=== PATIENT | male | born 1980 | race Caucasian/White ===

== ENCOUNTER 2016-05-07 22:05 | Emergency (ER) | payer MEDICAID ==
[~2016-05-07] VITALS: Ht 182.9 cm; Wt 101.2 kg
[~2016-05-07 22:05] MED LIST: CLON0.5T PO; CLON1TAB PO; CLON1TAB3 PO; DEXT30TA2 PO; DEXT5TAB27 PO; GABA-585 PO; GABA-586 PO; GABA600T2 PO; HYDR-971 PO; HYDR2TAB13 PO; INSU100I17 SQ; INSU100V13 SQ; INSU100V31 SQ; INSU100V8 SQ; LEVO750T31 PO; LORA-434 PO; MELA1TAB11 PO; METF10002 PO; METO10TA81 PO; METO5TAB PO; METO5TAB55 PO; METR500T PO; NAPR500T PO; ONDA4TAB7 PO; OXYC-323 PO; Oxycodone Hcl/Acetaminophen PO
[2016-05-07 22:45] LABS: BASO % 1 % (0-3); EOS % 3 % (0-3); HEMATOCRIT 35.2 % (39.0-53.0); HEMOGLOBIN 11.5 g/dL (13.0-17.5); LYMPH # 1.7 x10^3/uL (1.0-4.8); LYMPH % 35 % (24-48); MEAN CORPUSCULAR HEMOGLOBIN 27 pg (25-35); MEAN CORPUSCULAR HGB CONC 33 g/dL (31-37); MEAN CORPUSCULAR VOLUME 83 fL (79-100); MONO % 7 % (0-9); NEUT % 55 % (31-73); PLATELET COUNT 282 x10^3/uL (140-400); RED BLOOD COUNT 4.21 x10^6/uL (4.30-5.70); RED CELL DISTRIBUTION WIDTH 16.3 % (11.5-14.5); WHITE BLOOD COUNT 4.7 x10^3/uL (4.0-11.0)
[2016-05-07] MEDS ORDERED: IV NORMAL SALINE 1000ML BAG 1,000 ML IV ONE (22:45)
[2016-05-07] MEDS ORDERED: MORPHINE SULFATE 4 MG/ML DISP.SYRIN. IV ONE (22:45)
--- NOTE | 2016-05-07 22:56 | RAD ---
PROCEDURE Three-view right shoulder radiographs 05/07/2016 HISTORY Severe right shoulder pain. History of recent right shoulder fracture. FINDINGS AP internal and external rotation and transscapular digital radiographs the right shoulder were obtained. Comparison study is dated 04/04/2016. A comminuted fracture is again seen involving the right humeral neck which extends to involve the greater tuberosity. The alignment of the fracture fragments have not significantly changed. Since the previous examination there has been evidence of callus formation consistent with interval healing. No acute fracture is seen. IMPRESSION Healing fracture of the proximal right humerus as outlined above. No acute fracture is seen. Electronically signed by: Edy Silverman MD (May 07, 2016 22:54:57)
[2016-05-07 23:03] LABS: CALCIUM 8.9 mg/dL (8.5-10.1); CREATININE 1.1 mg/dL (0.7-1.3); GFR 76.2
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
[2016-05-08] MEDS ORDERED: HYDR-971 PO (00:01)
[2016-05-08 00:15] VITALS: BP 111/63
== END 2016-05-08 00:30 | disposition home or self-care (01) ==
LOC: ER 22:05
DX: S42.91XA Fracture of right shoulder girdle, part unspecified, initial encounter for closed fracture (principal); E11.65 Type 2 diabetes mellitus with hyperglycemia; K50.90 Crohn's disease, unspecified, without complications; Z88.8 Allergy status to other drugs, medicaments and biological substances; Z88.5 Allergy status to narcotic agent; V49.9XXA Car occupant (driver) (passenger) injured in unspecified traffic accident, initial encounter; Y93.89 Activity, other specified; Y92.89 Other specified places as the place of occurrence of the external cause; Y99.8 Other external cause status
CPT/HCPCS: 36415; 73030; 80048; 82947; 85027; 96361; 96374; 99285; J2270; J7030

== ENCOUNTER 2016-06-12 19:47 | Inpatient (IN) | payer MEDICAID ==
[~2016-06-12] VITALS: Ht 185.4 cm; Wt 103.9 kg
[2016-06-12] MEDS ORDERED: IV NORMAL SALINE 1000ML BAG 1,000 ML IV SCH (20:12)
--- NOTE | 2016-06-12 20:12 | PHYS DOC ---
Past Medical History Past Medical History: Diabetes-Type II, Diverticulosis, Pancreatitis Additional Past Medical Histor: BI-POLAR, CHRONES DISEASE, ADHD Past Surgical History: No Surgical History Additional Past Surgical Histo: Colonoscopy, EGD Additional Information: CHEWS TOBACCO Alcohol Use: Occasionally Drug Use: Marijuana, Methamphetamine Adult General Chief Complaint Chief Complaint: HYPERGLYCEMIA HPI HPI Patient is a 35 year old female who presents with right flank and abdominal pain, nausea and vomiting, hyperglycemia. Patient reports for the past day and a half he has been having sharp pain in his right flank and right lower quadrant. This is accompanied by nausea and vomiting. He also reports his blood sugars been running in the 400s and he has been having polyuria. He has been taking his insulin as he is supposed to. No clear inciting or mitigating factors. No other acute complaints. Review of Systems Review of Systems Constitutional: Denies fever or chills Eyes: Denies change in visual acuity or eye pain HENT: Denies nasal congestion or sore throat Respiratory: Denies cough or shortness of breath Cardiovascular: Denies chest pain GI: RLQ abdominal pain, nausea, vomiting. Denies bloody stools or diarrhea : Polyuria. Denies dysuria or hematuria Musculoskeletal: R flank pain. Denies back pain or joint pain Integument: Denies rash or skin lesions Neurologic: Denies headache, focal weakness or sensory changes Current Medications Current Medications Current Medications Medications (Trade) Dose Ordered Sig/Trev Start Time Stop Time Status Last Admin Dose Admin Info (Do NOT chart on this entry -- for MONITORING) 1 each PRN DAILY PRN 06/12/16 20:45 06/14/16 20:44 Iohexol (Omnipaque 300 Mg/ml) 75 ml 1X ONCE 06/12/16 20:30 06/12/16 20:31 DC 06/12/16 21:21 75 ML Morphine Sulfate 4 mg 4 mg 1X ONCE 06/12/16 21:45 06/12/16 21:46 DC 06/12/16 21:59 4 MG Promethazine HCl/ Sodium Chloride (Phenergan/Iv Sodium Chloride 0.9% 50ml) 50.5 ml @ 151.5 mls/ hr 1X ONCE 06/12/16 20:15 06/12/16 20:34 DC 06/12/16 20:33 151.5 MLS/HR Sodium Chloride (Iv Sodium Chloride 0.9% 1000ml Bag) 1,000 ml @ 75 mls/hr [id number] 06/12/16 22:42 06/13/16 22:41 Allergies Allergies Allergies Coded Allergies Type Severity Reaction Last Updated Verified fentanyl Allergy Severe Throat Swells--Anaphylaxis 10/20/13 Yes haloperidol Allergy Severe "In ICU, almost .Toxicity." 10/20/13 Yes lithium Allergy Severe "In ICU-almost . Toxicity" 10/20/13 Yes ketorolac Allergy Intermediate Hives 10/20/13 Yes Physical Exam Physical Exam Constitutional: Well developed, well nourished, no acute distress, non-toxic appearance HENT: Normocephalic, atraumatic, bilateral external ears normal Eyes: EOMI, conjunctiva normal, no discharge Neck: Normal range of motion, no stridor Cardiovascular: Tachycardic, regular rhythm, no murmur Lungs & Thorax: Bilateral breath sounds clear to auscultation Abdomen: Bowel sounds normal, soft, non-distended, RLQ TTP without guarding or rebound Skin: Warm, dry, no erythema, no rash Back: R CVA tenderness Extremities: No obvious deformity, no edema Neurologic: Alert and oriented X 3, no gross deficits noted Psychologic: Affect normal, judgement normal, mood normal Current Patient Data Vital Signs Vital Signs Date Time Temp Pulse Resp B/P Pulse Ox O2 Delivery O2 Flow Rate FiO2 06/12/16 19:50 97.6 89 16 130/73 99 Room Air 97.6 Lab Values Laboratory Tests Test 06/12/16 19:57 06/12/16 20:40 Glucose (Fingerstick) 368mg/dL (70-99) H White Blood Count 7.3x10^3/uL (4.0-11.0) Red Blood Count 4.25x10^6/uL (4.30-5.70) L Hemoglobin 11.3g/dL (13.0-17.5) L Hematocrit 34.6% (39.0-53.0) L Mean Corpuscular Volume 81fL (79-100) Mean Corpuscular Hemoglobin 27pg (25-35) Mean Corpuscular Hemoglobin Concent 33g/dL (31-37) Red Cell Distribution Width 16.0% (11.5-14.5) H Platelet Count 264x10^3/uL (140-400) Neutrophils (%) (Auto) 72% (31-73) Lymphocytes (%) (Auto) 20% (24-48) L Monocytes (%) (Auto) 7% (0-9) Eosinophils (%) (Auto) 1% (0-3) Basophils (%) (Auto) 0% (0-3) Neutrophils # (Auto) 5.2x10^3uL (1.8-7.7) Lymphocytes # (Auto) 1.5x10^3/uL (1.0-4.8) Monocytes # (Auto) 0.5x10^3/uL (0.0-1.1) Eosinophils # (Auto) 0.1x10^3/uL (0.0-0.7) Basophils # (Auto) 0.0x10^3/uL (0.0-0.2) Urine Color Yellow Urine Clarity Cloudy Urine pH 6.5 Urine Specific [place] >=1.030 Urine Protein Negativemg/dL (NEG-TRACE) Urine Glucose (UA) >=1000mg/dL (NEG) Urine Ketones (Stick) Negativemg/dL (NEG) Urine Blood Negative (NEG) Urine Nitrite Negative (NEG) Urine Bilirubin Negative (NEG) Urine Urobilinogen Dipstick 0.2mg/dL (0.2 mg/dL) Urine Leukocyte Esterase Negative (NEG) Urine RBC 0/HPF (0-2) Urine WBC 0/HPF (0-4) Urine Squamous Epithelial Cells Occ/LPF Urine Bacteria 0/HPF (0-FEW) Sodium Level 140mmol/L (136-145) Potassium Level 4.0mmol/L (3.5-5.1) Chloride Level 101mmol/L (98-107) Carbon Dioxide Level 26mmol/L (21-32) Anion Gap 13 (6-14) Blood Urea Nitrogen 12mg/dL (8-26) Creatinine 0.8mg/dL (0.7-1.3) Estimated GFR (Cockcroft-Gault) 110.0 BUN/Creatinine Ratio 15 (6-20) Glucose Level 356mg/dL (70-99) H Calcium Level 9.0mg/dL (8.5-10.1) Total Bilirubin 0.2mg/dL (0.2-1.0) Aspartate Amino Transferase (AST) 14U/L (15-37) L Alanine Aminotransferase (ALT) 24U/L (16-63) Alkaline Phosphatase 137U/L (46-116) H Total Protein 7.3g/dL (6.4-8.2) Albumin 3.5g/dL (3.4-5.0) Albumin/Globulin Ratio 0.9 (1.0-1.7) L Lipase 123U/L (73-393) Laboratory Tests 06/12/16 20:40 Laboratory Tests 06/12/16 20:40 EKG EKG [] Radiology/Procedures Radiology/Procedures CT A/P: IMPRESSION No acute abnormality is seen. Course & Med Decision Making Course & Med Decision Making Pertinent Labs and Imaging studies reviewed. (See chart for details) Patient is 35-year-old male who presents with right flank and right lower quadrant pain, nausea and vomiting, hyperglycemia. We'll check CT abdomen/ pelvis to evaluate for possible causes such as kidney stone or appendicitis. Also check labs, UA. IV fluids, pain medication, nausea medication ordered for relief of symptoms. Blood work notable only for hyperglycemia. Imaging results as above. Discussed results with patient, who remains markedly tachycardic (in the 130s) even after fluids. Discussed with Dr. Rees, will admit under his care for further evaluation and treatment. Dragon Disclaimer Dragon Disclaimer This electronic medical record was generated, in whole or in part, using a voice recognition dictation system. Departure Departure Impression: Primary Impression: Abdominal pain Additional Impression: Tachycardia Disposition: ADMITTED INPATIENT Admitting Physician: Cookie Rees Condition: STABLE Referrals: NO PCP (PCP) Problem Qualifiers VARSHA WYMAN MD Jun 12, 2016 20:12
[2016-06-12] MEDS ORDERED: PROMETHAZINE 12.5 MG in IV NORMAL SALINE 50ML 50 ML IV ONE (20:15)
[2016-06-12] MEDS ORDERED: MORPHINE SULFATE 4 MG/ML DISP.SYRIN. IV ONE ×2 (20:15→21:45)
[2016-06-12] MEDS ORDERED: IOHEXOL 300 MG/ML 75 ML VIAL IV ONE (20:30)
[2016-06-12] MEDS ORDERED: CONTRAST GIVEN MC PRN (20:45)
[2016-06-12 20:46] LABS: BILIRUBIN,URINE NEGATIVE (NEG); GLUCOSE,URINE >=1000 mg/dL (NEG); NITRITE,URINE NEGATIVE (NEG); PH,URINE 6.5; PROTEIN,URINE NEGATIVE (NEG-TRACE); UROBILINOGEN,URINE 0.2 mg/dL (0.2 mg/dL)
[2016-06-12 20:54] LABS: BASO % 0 % (0-3); EOS % 1 % (0-3); HEMATOCRIT 34.6 % (39.0-53.0); HEMOGLOBIN 11.3 g/dL (13.0-17.5); LYMPH # 1.5 x10^3/uL (1.0-4.8); LYMPH % 20 % (24-48); MEAN CORPUSCULAR HEMOGLOBIN 27 pg (25-35); MEAN CORPUSCULAR HGB CONC 33 g/dL (31-37); MEAN CORPUSCULAR VOLUME 81 fL (79-100); MONO % 7 % (0-9); NEUT % 72 % (31-73); PLATELET COUNT 264 x10^3/uL (140-400); RED BLOOD COUNT 4.25 x10^6/uL (4.30-5.70); WHITE BLOOD COUNT 7.3 x10^3/uL (4.0-11.0)
[2016-06-12 20:55] LABS: BACTERIA,URINE 0 /HPF (0-FEW); RBC,URINE 0 /HPF (0-2); SQUAMOUS EPITHELIAL CELL,UR OCC /LPF; WBC,URINE 0 /HPF (0-4)
[2016-06-12 21:03] LABS: CREATININE 0.8 mg/dL (0.7-1.3)
[2016-06-12 21:09] LABS: ALBUMIN 3.5 g/dL (3.4-5.0); ALBUMIN/GLOBULIN RATIO 0.9 (1.0-1.7); TOTAL BILIRUBIN 0.2 mg/dL (0.2-1.0); TOTAL PROTEIN 7.3 g/dL (6.4-8.2)
--- NOTE | 2016-06-12 21:38 | RAD ---
PROCEDURE CT scan abdomen and pelvis with contrast 06/12/2016 HISTORY Right flank pain. History of Crohn's disease. TECHNIQUE After the intravenous administration off 75 cc of Omnipaque 300, contiguous, 5 millimeter axial sections were obtained through the abdomen and pelvis. One or more of the following individualized dose reduction techniques were utilized for this study: 1. Automated exposure control. 2. Adjustment of the mA and/or kV according to patient size. 3. Use of iterative reconstruction technique. FINDINGS Comparison study is dated 04/14/2016. The absence of oral contrast material limits this study for the detection of bowel pathology. Images through the lung bases demonstrate minimal dependent subsegmental atelectasis bilaterally. The liver, spleen, pancreas, adrenal glands and kidneys are within normal limits. The abdominal aorta tapers normally. The gallbladder is slightly contracted. No free fluid or free air is seen within the abdomen. There is no evidence of bowel obstruction. Air and stool seen throughout the colon. The terminal ileum is mildly distended and filled with stool. No wall thickening of the terminal ileum is noted. No inflammatory changes are seen in the adjacent fat. The appendix is well-visualized is within normal limits. Images through the pelvis demonstrate the urinary bladder distended with urine. No free fluid is seen. The osseous structures are unchanged. IMPRESSION No acute abnormality is seen. Electronically signed by: Edy Silverman MD (Jun 12, 2016 21:36:28)
[2016-06-12] MEDS ORDERED: ACETAMINOPHEN 325 MG TABLET. PO PRN (22:45)
[2016-06-12] MEDS ORDERED: IV NORMAL SALINE 1000ML BAG 1,000 ML IV ONE (22:45)
--- NOTE | 2016-06-12 23:34 | ACF ---
Admit Criteria Forms Admit Criteria Forms Admit Criteria Forms ABDOMINAL PAIN Clinical Indications for Admission to Inpatient Care (Place 'X' for any and all applicable criteria): Admission is indicated for ANY ONE of the following(1)(2)(3)(4)(5): [X]I. Inpatient admission required rather than observation care (Also use Abdominal Pain: Observation Care, as appropriate) because of ANY ONE of the following: [X]a) Severe pain requiring acute inpatient management [ ]b) Identification of etiology/finding that requires inpatient care (eg, aortic dissection, free air) [ ]c) Absent bowel sounds with complete ileus(6) [ ]d) Suspected toxic megacolon [ ]e) Severe electrolyte abnormalities requiring inpatient care [ ]f) High fever or infection requiring inpatient admission as indicated by ANY ONE of following(7)(8): [ ] i) Appropriate outpatient or observational care antimicrobial treatment unavailable, not effective, or not feasible [ ] ii) Documented bacteremia [ ] iii) Temperature > 104.9 degrees F (oral) [ ] iv) T >103.1 F (oral) or < 96.8 F(rectal) that does not respond to all emergency treatment measures [ ]g) Signs of intestinal obstruction [B] [ ]h) Hemodynamic instability [ ]i) IV fluid to replace significant ongoing losses (greater than 3 L/m2 per day) (12)(13) [ ]j) Percutaneous or open drainage (eg, abscess, biliary tract ) procedures [ ]k) Parenteral nutrition regimen that must be implemented on inpatient basis [ ]l) Other condition,treatment or monitoring requiring inpatient admission. [ ]II. Peritoneal signs present [ ]III. Surgery needed that cannot be performed on an ambulatory basis. [ ]IV. Evaluation requires patient to not eat or drink for extended period ( eg, more than 24 hours). [ ]V. Contraindications and/or Inappropriate clinical situations for Observational Care in patients with abdominal pain, when ANY ONE of the following is required: [ ]a) Thorough evaluation is required to prevent catastrophic events due to delays in diagnosing (e.g.Mesenteric ischemia) 1,3 [ ]b) Patient with severe pathology or with chronic symptoms unlikely to improve in the ED stay (3) [ ]. General contraindications and/or Inappropriate clinical situations for Observational Care in patients with abdominal pain, when ANY ONE of the following is required: [ ]a) Prediction of prolongation of LOS based on ANY ONE of the following may be considered as a contraindication for observational care 2, 3, 4, 5, 6, 7, 8, 9, 10, 11 [ ]i) Age > 65 yrs. [ ]ii) Patient arriving by ambulance [ ]iii) Patient with high acuity [ ]iv) Patient requiring vital sign monitoring [ ]v) Patient on IV medication [ ]b) Systolic blood pressures 180mmHg 3,12 [ ]c) Patient with altered mental status including delirium and other alteration of consciousness, (3) [ ]d) Patient whose discharge disposition will be to a senior care home or rehabilitation home should not be managed in Emergency Department Observation Unit. CMS rule requires 3 days hospital stay before such placement.3,13 [ ]e) Patient with failure to thrive due to broad array of etiologies 3,16,17 [ ]f) Inability to ambulate 3,14 Extended stay beyond goal length of stay may be needed for(2)(3): [ ]a) Persistent abdominal pain with suspected intra-abdominal process [ ]b) Diagnosed condition requiring continued stay (e.g., pancreatitis, complicated diverticulitis) [ ]c) Surgery (e.g., colectomy) The original [employer] content created by [employer] has been revised. The portions of the content which have been revised are identified through the use of italic text or in bold, and [facility] has neither reviewed nor approved the modified material.All other unmodified content is copyright [employer]. Please see references footnoted in the original [facility] edition 2016 ENDER AYOUB Jun 12, 2016 23:34
[2016-06-12 23:45] VITALS: BP 149/62
[2016-06-13] MEDS: ONDANSETRON PF 4 MG/2 ML VIAL. IV PRN ×2 (00:32→13:30)
[2016-06-13] MEDS: MORPHINE SULFATE 4 MG/ML DISP.SYRIN. IV PRN ×6 (00:36→21:01)
[2016-06-13] MEDS: IV NORMAL SALINE 1000ML BAG 1,000 ML IV SCH ×2 (00:39→11:56)
[2016-06-13 03:00] VITALS: BP 144/91
[2016-06-13] MEDS ORDERED: CLON1TAB3 PO (03:23)
[2016-06-13] MEDS ORDERED: INSU100I13 SQ (03:27)
[2016-06-13] MEDS ORDERED: GABA600T2 PO (03:28)
[2016-06-13] MEDS ORDERED: INSU100I17 SQ (03:34)
[2016-06-13] MEDS ORDERED: OXYC10TA PO (03:36)
[2016-06-13 05:23] LABS: BASO % 0 % (0-3); EOS % 2 % (0-3); HEMATOCRIT 33.6 % (39.0-53.0); LYMPH # 1.1 x10^3/uL (1.0-4.8); LYMPH % 18 % (24-48); MEAN CORPUSCULAR HEMOGLOBIN 26 pg (25-35); MEAN CORPUSCULAR HGB CONC 33 g/dL (31-37); MEAN CORPUSCULAR VOLUME 80 fL (79-100); MONO % 7 % (0-9); NEUT % 73 % (31-73); PLATELET COUNT 263 x10^3/uL (140-400); RED BLOOD COUNT 4.18 x10^6/uL (4.30-5.70); RED CELL DISTRIBUTION WIDTH 15.8 % (11.5-14.5); WHITE BLOOD COUNT 6.2 x10^3/uL (4.0-11.0)
[2016-06-13 05:44] LABS: CALCIUM 8.8 mg/dL (8.5-10.1); CREATININE 0.6 mg/dL (0.7-1.3); GFR 153.3
[2016-06-13 07:00] VITALS: BP 149/102
[2016-06-13 11:00] VITALS: BP 149/96
--- NOTE | 2016-06-13 12:23 | SSS ---
ADMIT DATE: 06/12/2016 CHIEF COMPLAINT: Hyperglycemia. HISTORY OF PRESENT ILLNESS: The patient is a pleasant 35-year-old male who presents to the ER with right flank pain and elevated glucose. While in the ER, he was noted to be tachycardic at 114 beats per minute. I discussed the case with the ER physician. He also has sugars in the 400s. We are going to admit him to get his sugars under control. PAST MEDICAL HISTORY: Narcotic dependence, diabetes, diverticulosis, pancreatitis, bipolar, Crohn's, ADHD, colonoscopy, EGD, chewing tobacco usage, marijuana use, methamphetamine use. ALLERGIES: FENTANYL, HALOPERIDOL, TORADOL AND LITHIUM. FAMILY HISTORY: Coronary artery disease. SOCIAL HISTORY: He does not drink or smoke. I think he does use some drugs. MEDICATIONS: Reviewed, please refer to the MRAD. REVIEW OF SYSTEMS: GENERAL: No history of weight change, weakness or fevers. SKIN: No bruising, hair changes or rashes. EYES: No blurred, double or loss of vision. NOSE AND THROAT: No history of nosebleeds, hoarseness or sore throat. HEART: No history of palpitations, chest pain or shortness of breath on exertion. LUNGS: Denies cough, hemoptysis, wheezing or shortness of breath. GASTROINTESTINAL: Denies changes in appetite, nausea, vomiting, diarrhea or constipation. GENITOURINARY: No history of frequency, urgency, hesitancy or nocturia. NEUROLOGIC: Denies history of numbness, tingling, tremor or weakness. PSYCHIATRIC: No history of panic, anxiety or depression. ENDOCRINE: No history of heat or cold intolerance, polyuria or polydipsia. EXTREMITIES: Denies muscle weakness, joint pain, pain on walking or stiffness. PHYSICAL EXAMINATION: VITAL SIGNS: Temperature afebrile, pulse is ranging from 118-120, respirations 18, blood pressure 149/102. GENERAL: He is alert, cooperative, pleasant. HEART: Normal S1, S2, tachycardic. LUNGS: Clear. ABDOMEN: Soft. EXTREMITIES: No edema. SKIN: No rashes. PSYCHIATRIC: He is stable. VASCULAR: Good capillary refill. ENDOCRINE: No thyromegaly. LYMPHATICS: No cervical nodes. HEMATOPOIETIC: No bruising. LABORATORY DATA: White count 7, hemoglobin 11, platelets 264. Electrolytes normal other than a glucose of 356. This morning it is down to 200. AST a little low at 14, alkaline phosphatase a little high at 137. ASSESSMENT AND PLAN: Hyperglycemia tachycardia, elevated alkaline phosphate and anemia in a middle-aged male who has the above-noted comorbidities. The patient is on cardiac monitoring. We will consult GI regarding his abdominal pain. Consult Cardiology regarding the tachycardia. Check a urine drug screen. PT, OT, home meds, frequent Accu-Cheks, sliding scale insulin. CRICKET MARES DO DR: ALIVIA/bassam JOB#: [id number] / [id number]
[2016-06-13] MEDS: INSULIN ASPART 300 UNITS/3 ML INSULN.PEN SQ SCH ×2 (13:39→18:30)
[2016-06-13 15:22] VITALS: BP 138/82
[2016-06-13] MEDS: CLONAZEPAM 1 MG TABLET PO SCH ×2 (15:53→21:01)
[2016-06-13] MEDS: GABAPENTIN 300 MG CAPSULE. PO SCH ×2 (15:53→21:01)
[2016-06-13] MEDS: OXYCODONE IR 5 MG TABLET. PO PRN ×2 (15:54→23:39)
[2016-06-13 19:00] VITALS: BP 134/86
[2016-06-13] MEDS: NON FORMULARY ITEM (Dextroamphetamine/Amphetamine (Adderall 30 Mg Tablet) 30 MG) PO SCH (21:00)
[2016-06-13] MEDS: INSULIN DETEMIR 300 UNITS/3 ML INSULN.PEN. SQ SCH (21:07)
[2016-06-13 23:00] VITALS: BP 128/81
[2016-06-14 03:00] VITALS: BP 153/78
[2016-06-14] MEDS: OXYCODONE IR 5 MG TABLET. PO PRN ×4 (03:52→21:29)
[2016-06-14 07:00] VITALS: BP 126/73
--- NOTE | 2016-06-14 08:38 | PDOC2 ---
CONSULT Date of Consult Date of Consult DATE: 06/14/16 TIME: 08:32 Reason for Consult Reason for Consult: tachycardia Referring Physician Referring Physician: Dr. Rees Identification/Chief Complaint Chief Complaint Abdominal pain Source Source: Patient History of Present Illness Reason for Visit: The patient is a 35-year-old male admitted through the emergency room with episodes of abdominal discomfort and elevated glucose. He has a history of diverticulitis, pancreatitis and Crohn's disease. Initial glucose levels were in the 200 range. He has been treated with medical patient's and pain control and is feeling significantly better this morning. His initial rate on admission was approximately 134 and a sinus tachycardia by available telemetry strips. This morning he is running in a sinus tachycardia rate of 100. There is no documented history of coronary disease, congestive heart failure or significant cardiac arrhythmias. Past Medical History Cardiovascular: HTN GI: Inflam bowel disease, Irritable bowel disease Heme/Onc: No pertinent hx Hepatobiliary: No pertinent hx Psych: Bipolar, Depression Musculoskeletal: low back pain, Osteoarthritis Rheumatologic: No pertinent hx Infectious disease: No pertinent hx Renal/: No pertinent hx Endocrine: Diabetes Past Surgical History Past Surgical History: No pertinent history Family History Family History: No Significant, Hypertension Social History ALCOHOL: occassional Drugs: None, Marijuana Current Problem List Problem List Problems Medical Problems: (1) Abdominal pain Status: Acute (2) Tachycardia Status: Acute Current Medications Current Medications Current Medications Sodium Chloride 1,000 ml @ 1,000 mls/hr Q1H IV Last administered on 06/12/16 20:32; Start 06/12/16 at 20:12; Stop 06/12/16 at 21:11; Status DC Promethazine HCl/ Sodium Chloride (Phenergan/Iv Sodium Chloride 0.9% 50ml) 50.5 ml @ 151.5 mls/ hr 1X ONCE IV Last administered on 06/12/16 20:33; Start 06/12 at 20:15; Stop 06/12/16 at 20:34; Status DC Morphine Sulfate 4 mg 1X ONCE IV Last administered on 06/12/16 20:32; Start at 20:15; Stop 06/12/16 at 20:16; Status DC Iohexol (Omnipaque 300 Mg/ml) 75 ml 1X ONCE IV Last administered on 06/12/16 21:21; Start 06/12/16 at 20:30; Stop 06/12/16 at 20:31; Status DC Info (Do NOT chart on this entry -- for MONITORING) 1 each PRN DAILY PRN MC SEE COMMENTS; Start 06/12/16 at 20:45; Stop 06/14/16 at 20:44 Morphine Sulfate 4 mg 4 mg 1X ONCE IV Last administered on 06/12/16 21:59; Start 06/12/16 at 21:45; Stop 06/12/16 at 21:46; Status DC Sodium Chloride (Iv Sodium Chloride 0.9% 1000ml Bag) 1,000 ml @ 1,000 mls/hr 1X ONCE IV Last administered on 06/12/16 22:45; Start 06/12/16 at 22:45; Stop 06/12/16 at 23:44; Status DC Ondansetron HCl (Zofran) 4 mg PRN Q8HRS PRN IV NAUSEA/VOMITING Last administered on 06/13/16 13:30; Start 06/12/16 at 22:45; Stop 06/13/16 at 22:44; Status DC Morphine Sulfate 4 mg 4 mg PRN Q2HR PRN IV SEVERE PAIN Last administered on 06/13 21:01; Start 06/12/16 at 22:45; Stop 06/13/16 at 22:44; Status DC Sodium Chloride (Iv Sodium Chloride 0.9% 1000ml Bag) 1,000 ml @ 75 mls/hr [id number] IV Last administered on 06/13/16 11:56; Start 06/12/16 at 22:42; Stop at 22:41; Status DC Acetaminophen (Tylenol) 650 mg PRN Q4HRS PRN PO FEVER; Start 06/12/16 at 22:45; Stop 06/13/16 at 22:44; Status DC Clonazepam (Klonopin) 1 mg TID PO Last administered on 06/13/16 21:01; Start at 14:00 Insulin Aspart (Novolog) 20 units TIDAC SQ Last administered on 06/13/16 18:30 ; Start 06/13/16 at 11:30 Non-Formulary Medication 30 mg BID PO ADHD; Start 06/13/16 at 21:00; Status UNV Gabapentin (Neurontin) 600 mg TID PO Last administered on 06/13/16 21:01; Start 06/13/16 at 14:00 Insulin Detemir (Levemir) 80 units QHS SQ Last administered on 06/13/16 21:07; Start 06/13/16 at 21:00 Oxycodone HCl (Roxicodone) 10 mg PRN Q4HRS PRN PO PAIN Last administered on 06/14 03:52; Start 06/13/16 at 11:30 Active Scripts Active Reported Oxycodone Hcl 10 Mg Tablet 1 Tab PO Q4-6HRS PRN Novolog Flexpen (Insulin Aspart) 100 Unit/1 Ml Insuln.pen 20 Unit SQ TIDAC Gabapentin 600 Mg Tablet 600 Mg PO TID Lantus Solostar (Insulin Glargine,Hum.rec.anlog) 100 Unit/1 Ml Insuln.pen 80 Unit SQ QHS Clonazepam 1 Mg Tablet 1 Tab PO TID Adderall 30 Mg Tablet (Dextroamphetamine/Amphetamine) 30 Mg Tablet 30 Mg PO BID Metformin Hcl 1,000 Mg Tablet 1,000 Mg PO BID Allergies Allergies: Coded Allergies: fentanyl (Verified Allergy, Severe, Throat Swells--Anaphylaxis, 10/20/13) haloperidol (Verified Allergy, Severe, "In ICU, almost .Toxicity.", 02/23) lithium (Verified Allergy, Severe, "In ICU-almost . Toxicity", 10/20/13 ) ketorolac (Verified Allergy, Intermediate, Hives, 10/20/13) ROS Gastrointestinal: Yes Abdominal Pain, Yes Nausea, Yes Vomiting Physical Exam General: mild distress HEENT: Atraumatic Lungs: Clear to auscultation Heart: Regular rate Abdomen: Other (mild generalized tenderness) Vitals VITALS Vital Signs Date Time Temp Pulse Resp B/P Pulse Ox O2 Delivery O2 Flow Rate FiO2 06/14/16 07:00 97.9 107 18 126/73 94 Room Air 97.9 Labs Labs Laboratory Tests Test 06/12/16 19:57 06/12/16 20:40 06/13/16 05:05 06/13/16 07:30 Glucose (Fingerstick) 368mg/dL (70-99) 200mg/dL (70-99) White Blood Count 7.3x10^3/uL (4.0-11.0) 6.2x10^3/uL (4.0-11.0) Red Blood Count 4.25x10^6/uL (4.30-5.70) 4.18x10^6/uL (4.30-5.70) Hemoglobin 11.3g/dL (13.0-17.5) 11.0g/dL (13.0-17.5) Hematocrit 34.6% (39.0-53.0) 33.6% (39.0-53.0) Mean Corpuscular Volume 81fL (79-100) 80fL (79-100) Mean Corpuscular Hemoglobin 27pg (25-35) 26pg (25-35) Mean Corpuscular Hemoglobin Concent 33g/dL (31-37) 33g/dL (31-37) Red Cell Distribution Width 16.0% (11.5-14.5) 15.8% (11.5-14.5) Platelet Count 264x10^3/uL (140-400) 263x10^3/uL (140-400) Neutrophils (%) (Auto) 72% (31-73) 73% (31-73) Lymphocytes (%) (Auto) 20% (24-48) 18% (24-48) Monocytes (%) (Auto) 7% (0-9) 7% (0-9) Eosinophils (%) (Auto) 1% (0-3) 2% (0-3) Basophils (%) (Auto) 0% (0-3) 0% (0-3) Neutrophils # (Auto) 5.2x10^3uL (1.8-7.7) 4.5x10^3uL (1.8-7.7) Lymphocytes # (Auto) 1.5x10^3/uL (1.0-4.8) 1.1x10^3/uL (1.0-4.8) Monocytes # (Auto) 0.5x10^3/uL (0.0-1.1) 0.4x10^3/uL (0.0-1.1) Eosinophils # (Auto) 0.1x10^3/uL (0.0-0.7) 0.1x10^3/uL (0.0-0.7) Basophils # (Auto) 0.0x10^3/uL (0.0-0.2) 0.0x10^3/uL (0.0-0.2) Urine Color Yellow Urine Clarity Cloudy Urine pH 6.5 Urine Specific [place] >=1.030 Urine Protein Negativemg/dL (NEG-TRACE) Urine Glucose (UA) >=1000mg/dL (NEG) Urine Ketones (Stick) Negativemg/dL (NEG) Urine Blood Negative (NEG) Urine Nitrite Negative (NEG) Urine Bilirubin Negative (NEG) Urine Urobilinogen Dipstick 0.2mg/dL (0.2 mg/dL) Urine Leukocyte Esterase Negative (NEG) Urine RBC 0/HPF (0-2) Urine WBC 0/HPF (0-4) Urine Squamous Epithelial Cells Occ/LPF Urine Bacteria 0/HPF (0-FEW) Sodium Level 140mmol/L (136-145) 140mmol/L (136-145) Potassium Level 4.0mmol/L (3.5-5.1) 4.0mmol/L (3.5-5.1) Chloride Level 101mmol/L (98-107) 104mmol/L (98-107) Carbon Dioxide Level 26mmol/L (21-32) 27mmol/L (21-32) Anion Gap 13 (6-14) 9 (6-14) Blood Urea Nitrogen 12mg/dL (8-26) 9mg/dL (8-26) Creatinine 0.8mg/dL (0.7-1.3) 0.6mg/dL (0.7-1.3) Estimated GFR (Cockcroft-Gault) 110.0 153.3 BUN/Creatinine Ratio 15 (6-20) Glucose Level 356mg/dL (70-99) 243mg/dL (70-99) Calcium Level 9.0mg/dL (8.5-10.1) 8.8mg/dL (8.5-10.1) Total Bilirubin 0.2mg/dL (0.2-1.0) Aspartate Amino Transf (AST/SGOT) 14U/L (15-37) Alanine Aminotransferase (ALT/SGPT) 24U/L (16-63) Alkaline Phosphatase 137U/L (46-116) Total Protein 7.3g/dL (6.4-8.2) Albumin 3.5g/dL (3.4-5.0) Albumin/Globulin Ratio 0.9 (1.0-1.7) Lipase 123U/L (73-393) Test 06/13/16 11:20 06/13/16 16:57 06/13/16 21:00 06/14/16 07:19 Glucose (Fingerstick) 243mg/dL (70-99) 247mg/dL (70-99) 182mg/dL (70-99) 288mg/dL (70-99) Laboratory Tests Test 06/13/16 11:20 06/13/16 16:57 06/13/16 21:00 06/14/16 07:19 Glucose (Fingerstick) 243mg/dL (70-99) 247mg/dL (70-99) 182mg/dL (70-99) 288mg/dL (70-99) Assessment/Plan Assessment/Plan 1. Abdominal discomfort. Patient has a history of Crohn's disease and pancreatitis. He is feeling better. Workup is ongoing. 2. Tachycardia. Patient's initial telemetry strip shows a sinus tachycardia which is appropriate in the setting of his abdominal pain. With better control of his pain he is now in a sinus tachycardia rate approximately 100. We'll continue to monitor. We'll check an echocardiogram to rule out wall motion abnormalities but overall this appears to be an appropriate tachycardia secondary to his pain. 3. History of bipolar disorder. Would continue on medical treatment. 4. Diabetes. Improved control. Medications adjustment as per the primary service. Thank you for allowing to participate in the care of your patient. FLORA MONTIEL MD Jun 14, 2016 08:38
[2016-06-14] MEDS: CLONAZEPAM 1 MG TABLET PO SCH ×3 (08:44→20:06)
[2016-06-14] MEDS: GABAPENTIN 300 MG CAPSULE. PO SCH ×3 (08:45→20:06)
[2016-06-14] MEDS: NON FORMULARY ITEM (Dextroamphetamine/Amphetamine (Adderall 30 Mg Tablet) 30 MG) PO SCH ×2 (08:55→20:00)
[2016-06-14] MEDS: INSULIN ASPART 300 UNITS/3 ML INSULN.PEN SQ SCH ×3 (08:55→17:31)
[2016-06-14 10:47] VITALS: BP 137/85
[2016-06-14] MEDS: MORPHINE SULFATE 4 MG/ML DISP.SYRIN. IV PRN ×3 (12:27→20:06)
--- NOTE | 2016-06-14 13:40 | PDOC ---
PROGRESS NOTES Chief Complaint Chief Complaint CC - Hyperglycemia and Tachycardia - H/o Narcotics dependence - Diabetes - Diverticulosis - ADHD - H/o Crohn's disease History of Present Illness History of Present Illness Patient was sitting on the side of the bed at the time of evaluation, was in no acute distress, had some questions which answered accordingly. Plan of care discussed with pt. and RN. Vitals Vitals Vital Signs Date Time Temp Pulse Resp B/P Pulse Ox O2 Delivery O2 Flow Rate FiO2 06/14/16 12:57 20 97 Room Air 06/14/16 10:47 97.9 116 137/85 97.9 Physical Exam General: Alert, Oriented X3, Cooperative, No acute distress Heart: Regular rate Lungs: Clear Abdomen: Soft Extremities: No edema, Normal pulses, No tenderness/swelling Skin: No breakdown, Other (cellulitis on left arm) Labs LABS Laboratory Tests Test 06/13/16 16:57 06/13/16 21:00 06/14/16 07:19 Glucose (Fingerstick) 247mg/dL (70-99) 182mg/dL (70-99) 288mg/dL (70-99) Review of Systems Review of Systems Afebrile, denies nausea/vomiting, left arm erythema and swelling noticed, no SOB , no CP, Assessment and Plan Assessmemt and Plan CC - Hyperglycemia and Tachycardia Assessment: - H/o Narcotics dependence - Diabetes - Diverticulosis - ADHD - H/o Crohn's disease Plan: - Continue care per floor protocol - Ordered Ceftriaxone 1g IV Q24h for cellulitis on left arm - Ordered Morphin Sulphate 2mg IV Q2H prn for pain - Recheck labs in AM - Appreciate subspecialities inputs and recommendations Problems Medical Problems: (1) Abdominal pain Status: Acute (2) Tachycardia Status: Acute Problems: Comment Review of Relevant I have reviewed the following items shante (where applicable) has been applied. Labs Laboratory Tests Test 06/12/16 19:57 06/12/16 20:40 06/13/16 05:05 06/13/16 07:30 Glucose (Fingerstick) 368mg/dL (70-99) 200mg/dL (70-99) White Blood Count 7.3x10^3/uL (4.0-11.0) 6.2x10^3/uL (4.0-11.0) Red Blood Count 4.25x10^6/uL (4.30-5.70) 4.18x10^6/uL (4.30-5.70) Hemoglobin 11.3g/dL (13.0-17.5) 11.0g/dL (13.0-17.5) Hematocrit 34.6% (39.0-53.0) 33.6% (39.0-53.0) Mean Corpuscular Volume 81fL (79-100) 80fL (79-100) Mean Corpuscular Hemoglobin 27pg (25-35) 26pg (25-35) Mean Corpuscular Hemoglobin Concent 33g/dL (31-37) 33g/dL (31-37) Red Cell Distribution Width 16.0% (11.5-14.5) 15.8% (11.5-14.5) Platelet Count 264x10^3/uL (140-400) 263x10^3/uL (140-400) Neutrophils (%) (Auto) 72% (31-73) 73% (31-73) Lymphocytes (%) (Auto) 20% (24-48) 18% (24-48) Monocytes (%) (Auto) 7% (0-9) 7% (0-9) Eosinophils (%) (Auto) 1% (0-3) 2% (0-3) Basophils (%) (Auto) 0% (0-3) 0% (0-3) Neutrophils # (Auto) 5.2x10^3uL (1.8-7.7) 4.5x10^3uL (1.8-7.7) Lymphocytes # (Auto) 1.5x10^3/uL (1.0-4.8) 1.1x10^3/uL (1.0-4.8) Monocytes # (Auto) 0.5x10^3/uL (0.0-1.1) 0.4x10^3/uL (0.0-1.1) Eosinophils # (Auto) 0.1x10^3/uL (0.0-0.7) 0.1x10^3/uL (0.0-0.7) Basophils # (Auto) 0.0x10^3/uL (0.0-0.2) 0.0x10^3/uL (0.0-0.2) Urine Color Yellow Urine Clarity Cloudy Urine pH 6.5 Urine Specific [place] >=1.030 Urine Protein Negativemg/dL (NEG-TRACE) Urine Glucose (UA) >=1000mg/dL (NEG) Urine Ketones (Stick) Negativemg/dL (NEG) Urine Blood Negative (NEG) Urine Nitrite Negative (NEG) Urine Bilirubin Negative (NEG) Urine Urobilinogen Dipstick 0.2mg/dL (0.2 mg/dL) Urine Leukocyte Esterase Negative (NEG) Urine RBC 0/HPF (0-2) Urine WBC 0/HPF (0-4) Urine Squamous Epithelial Cells Occ/LPF Urine Bacteria 0/HPF (0-FEW) Sodium Level 140mmol/L (136-145) 140mmol/L (136-145) Potassium Level 4.0mmol/L (3.5-5.1) 4.0mmol/L (3.5-5.1) Chloride Level 101mmol/L (98-107) 104mmol/L (98-107) Carbon Dioxide Level 26mmol/L (21-32) 27mmol/L (21-32) Anion Gap 13 (6-14) 9 (6-14) Blood Urea Nitrogen 12mg/dL (8-26) 9mg/dL (8-26) Creatinine 0.8mg/dL (0.7-1.3) 0.6mg/dL (0.7-1.3) Estimated GFR (Cockcroft-Gault) 110.0 153.3 BUN/Creatinine Ratio 15 (6-20) Glucose Level 356mg/dL (70-99) 243mg/dL (70-99) Calcium Level 9.0mg/dL (8.5-10.1) 8.8mg/dL (8.5-10.1) Total Bilirubin 0.2mg/dL (0.2-1.0) Aspartate Amino Transf (AST/SGOT) 14U/L (15-37) Alanine Aminotransferase (ALT/SGPT) 24U/L (16-63) Alkaline Phosphatase 137U/L (46-116) Total Protein 7.3g/dL (6.4-8.2) Albumin 3.5g/dL (3.4-5.0) Albumin/Globulin Ratio 0.9 (1.0-1.7) Lipase 123U/L (73-393) Test 06/13/16 11:20 06/13/16 16:57 06/13/16 21:00 06/14/16 07:19 Glucose (Fingerstick) 243mg/dL (70-99) 247mg/dL (70-99) 182mg/dL (70-99) 288mg/dL (70-99) Laboratory Tests Test 06/13/16 16:57 06/13/16 21:00 06/14/16 07:19 Glucose (Fingerstick) 247mg/dL (70-99) 182mg/dL (70-99) 288mg/dL (70-99) Medications Current Medications Sodium Chloride 1,000 ml @ 1,000 mls/hr Q1H IV Last administered on 06/12/16 20:32; Start 06/12/16 at 20:12; Stop 06/12/16 at 21:11; Status DC Promethazine HCl/ Sodium Chloride (Phenergan/Iv Sodium Chloride 0.9% 50ml) 50.5 ml @ 151.5 mls/ hr 1X ONCE IV Last administered on 06/12/16 20:33; Start 06/12 at 20:15; Stop 06/12/16 at 20:34; Status DC Morphine Sulfate 4 mg 1X ONCE IV Last administered on 06/12/16 20:32; Start at 20:15; Stop 06/12/16 at 20:16; Status DC Iohexol (Omnipaque 300 Mg/ml) 75 ml 1X ONCE IV Last administered on 06/12/16 21:21; Start 06/12/16 at 20:30; Stop 06/12/16 at 20:31; Status DC Info (Do NOT chart on this entry -- for MONITORING) 1 each PRN DAILY PRN MC SEE COMMENTS; Start 06/12/16 at 20:45; Stop 06/14/16 at 20:44 Morphine Sulfate 4 mg 4 mg 1X ONCE IV Last administered on 06/12/16 21:59; Start 06/12/16 at 21:45; Stop 06/12/16 at 21:46; Status DC Sodium Chloride (Iv Sodium Chloride 0.9% 1000ml Bag) 1,000 ml @ 1,000 mls/hr 1X ONCE IV Last administered on 06/12/16 22:45; Start 06/12/16 at 22:45; Stop 06/12/16 at 23:44; Status DC Ondansetron HCl (Zofran) 4 mg PRN Q8HRS PRN IV NAUSEA/VOMITING Last administered on 06/13/16 13:30; Start 06/12/16 at 22:45; Stop 06/13/16 at 22:44; Status DC Morphine Sulfate 4 mg 4 mg PRN Q2HR PRN IV SEVERE PAIN Last administered on 06/13 21:01; Start 06/12/16 at 22:45; Stop 06/13/16 at 22:44; Status DC Sodium Chloride (Iv Sodium Chloride 0.9% 1000ml Bag) 1,000 ml @ 75 mls/hr [id number] IV Last administered on 06/13/16 11:56; Start 06/12/16 at 22:42; Stop at 22:41; Status DC Acetaminophen (Tylenol) 650 mg PRN Q4HRS PRN PO FEVER; Start 06/12/16 at 22:45; Stop 06/13/16 at 22:44; Status DC Clonazepam (Klonopin) 1 mg TID PO Last administered on 06/14/16 08:44; Start at 14:00 Insulin Aspart (Novolog) 20 units TIDAC SQ Last administered on 06/14/16 12:35 ; Start 06/13/16 at 11:30 Non-Formulary Medication 30 mg BID PO ADHD; Start 06/13/16 at 21:00; Status UNV Gabapentin (Neurontin) 600 mg TID PO Last administered on 06/14/16 08:45; Start 06/13/16 at 14:00 Insulin Detemir (Levemir) 80 units QHS SQ Last administered on 06/13/16 21:07; Start 06/13/16 at 21:00 Oxycodone HCl (Roxicodone) 10 mg PRN Q4HRS PRN PO PAIN Last administered on 06/14 08:46; Start 06/13/16 at 11:30 Morphine Sulfate 4 mg PRN Q2HR PRN IV PAIN Last administered on 3/5/17at 12:27 ; Start 06/14/16 at 11:15 Active Scripts Active Reported Oxycodone Hcl 10 Mg Tablet 1 Tab PO Q4-6HRS PRN Novolog Flexpen (Insulin Aspart) 100 Unit/1 Ml Insuln.pen 20 Unit SQ TIDAC Gabapentin 600 Mg Tablet 600 Mg PO TID Lantus Solostar (Insulin Glargine,Hum.rec.anlog) 100 Unit/1 Ml Insuln.pen 80 Unit SQ QHS Clonazepam 1 Mg Tablet 1 Tab PO TID Adderall 30 Mg Tablet (Dextroamphetamine/Amphetamine) 30 Mg Tablet 30 Mg PO BID Metformin Hcl 1,000 Mg Tablet 1,000 Mg PO BID Vitals/I & O Vital Sign - Last 24 Hours 06/13/16 06/13/16 06/13/16 06/13/16 15:13 15:22 15:54 18:43 Temp 97.7 97.7 Pulse 96 Resp 20 23 20 20 B/P 138/82 Pulse Ox 96 95 95 95 O2 Delivery Room Air Room Air Room Air Room Air 06/13/16 06/13/16 06/13/16 06/13/16 19:00 19:13 20:00 23:00 Temp 97.7 97.7 97.7 97.7 Pulse 123 122 Resp 20 20 20 B/P 134/86 128/81 Pulse Ox 98 95 96 O2 Delivery Room Air Room Air Room Air Room Air 06/14/16 06/14/16 06/14/16 06/14/16 03:00 07:00 08:46 09:46 Temp 97.5 97.9 97.5 97.9 Pulse 112 107 Resp 20 18 20 20 B/P 153/78 126/73 Pulse Ox 96 94 94 94 O2 Delivery Room Air Room Air Room Air Room Air 06/14/16 06/14/16 06/14/16 10:47 12:27 12:57 Temp 97.9 97.9 Pulse 116 Resp 18 20 20 B/P 137/85 Pulse Ox 97 97 97 O2 Delivery Room Air Room Air Room Air Intake and Output 06/13/16 06/13/16 06/14/16 15:00 23:00 07:00 Intake Total 600 ml 480 ml 400 ml Output Total 400 ml Balance 200 ml 480 ml 400 ml CRICKET MARES III DO Jun 14, 2016 13:40
[2016-06-14 14:25] VITALS: BP 135/83
[2016-06-14] MEDS: CEFTRIAXONE SODIUM 1 GM in IV NORMAL SALINE 50ML 50 ML IV SCH (16:32)
[2016-06-14 19:00] VITALS: BP 134/88
[2016-06-14] MEDS: INSULIN DETEMIR 300 UNITS/3 ML INSULN.PEN. SQ SCH (21:36)
[2016-06-14 23:00] VITALS: BP 129/84
[2016-06-15] MEDS: MORPHINE SULFATE 4 MG/ML DISP.SYRIN. IV PRN ×4 (00:09→14:32)
[2016-06-15 03:00] VITALS: BP 127/79
[2016-06-15 06:04] LABS: BASO % 0 % (0-3); EOS % 2 % (0-3); HEMATOCRIT 36.8 % (39.0-53.0); HEMOGLOBIN 12.2 g/dL (13.0-17.5); LYMPH # 1.2 x10^3/uL (1.0-4.8); LYMPH % 16 % (24-48); MEAN CORPUSCULAR HEMOGLOBIN 26 pg (25-35); MEAN CORPUSCULAR HGB CONC 33 g/dL (31-37); MEAN CORPUSCULAR VOLUME 79 fL (79-100); MONO % 9 % (0-9); NEUT % 72 % (31-73); PLATELET COUNT 276 x10^3/uL (140-400); RED BLOOD COUNT 4.65 x10^6/uL (4.30-5.70); RED CELL DISTRIBUTION WIDTH 16.1 % (11.5-14.5); WHITE BLOOD COUNT 7.3 x10^3/uL (4.0-11.0)
[2016-06-15 06:40] LABS: CALCIUM 9.2 mg/dL (8.5-10.1); CREATININE 0.6 mg/dL (0.7-1.3); GFR 153.3; POTASSIUM 3.8 mmol/L (3.5-5.1)
[2016-06-15 07:00] VITALS: BP 124/78
[2016-06-15] MEDS: INSULIN ASPART 300 UNITS/3 ML INSULN.PEN SQ SCH ×3 (07:30→16:38)
[2016-06-15] MEDS: GABAPENTIN 300 MG CAPSULE. PO SCH ×3 (08:08→20:21)
[2016-06-15] MEDS: CLONAZEPAM 1 MG TABLET PO SCH ×3 (08:08→20:22)
[2016-06-15] MEDS: OXYCODONE IR 5 MG TABLET. PO PRN ×4 (08:11→23:41)
[2016-06-15] MEDS: NON FORMULARY ITEM (Dextroamphetamine/Amphetamine (Adderall 30 Mg Tablet) 30 MG) PO SCH ×2 (09:00→20:22)
[2016-06-15] MEDS ORDERED: ONDANSETRON PF 4 MG/2 ML VIAL. IV PRN (09:30)
[2016-06-15 10:49] VITALS: BP 127/75
--- NOTE | 2016-06-15 11:21 | CARD ---
APPROVED REPORT EXAM: Two-dimensional and M-mode echocardiogram with Doppler and color Doppler. Other Information Quality : GoodHR: 113bpm Rhythm : Tachycardia, PVC's INDICATION Tachycardia 2D DIMENSIONS RVDd3.3 (2.9-3.5cm)Left Atrium(2D)3.7 (1.6-4.0cm) IVSd1.0 (0.7-1.1cm)Aortic Root(2D)3.1 (2.0-3.7cm) LVDd5.1 (3.9-5.9cm)LVOT Diameter2.4 (1.8-2.4cm) PWd1.0 (0.7-1.1cm)LVDs3.4 (2.5-4.0cm) FS (%) 33.6 %SV77.7 ml LVEF(%)62.0 (>50%) Aortic Valve AoV Peak Dixon.101.6cm/sAoV VTI14.4cm AO Peak GR.4.1mmHgLVOT Peak Dixon.97.5cm/s AO Mean GR.3mmHgAVA (VMAX)4.49cm2 Mitral Valve MV E Ivcaupvm63.9cm/sMV E Peak Gr.3mmHg MV DECEL [id number] A Ckycaivd62.0cm/s MV E Mean Gr.2mmHgMV [id number] E/A Ratio1.5MV A Wcpbwrbs58yt MVA (PHT)6.17cm2 Tricuspid Valve TR P. Wmhdtgmz187zz/sRAP EBNFYZHT5gdBy TR Peak Gr.90nsPfDAIH18rhJt Pulmonary Vein S1 Jjnshynr05.8cm/sD2 Dccjxgvw85.7cm/s PVa [id number] LEFT VENTRICLE The left ventricle is normal size. There is normal left ventricular wall thickness. Left ventricle sy stolic function is normal. The Ejection Fraction is 50-55%. There is normal LV segmental wall motion. The left ventricular diastolic function and filling is normal for age. There is no ventricular septa l defect visualized. RIGHT VENTRICLE The right ventricle is normal size. The right ventricular systolic function is normal. Moderator band appears thickened. ATRIA The left atrium size is normal. The right atrium size is normal. Possible small atrial septal defect detected with color Doppler. AORTIC VALVE The aortic valve is trileaflet. The aortic valve is normal in structure and function. Doppler and Col or Flow revealed no significant aortic regurgitation. There is no significant aortic valvular stenosi s. MITRAL VALVE The mitral valve is normal in structure and function. There is no evidence of mitral valve prolapse. There is no mitral valve stenosis. Doppler and Color Flow revealed no mitral valve regurgitation note d. TRICUSPID VALVE The tricuspid valve is normal in structure. Doppler and Color Flow revealed mild tricuspid regurgitat ion. The PA pressure was estimated at 30 mmHg. PULMONIC VALVE The pulmonary valve is normal in structure and function. Doppler and Color Flow revealed no pulmonic valvular regurgitation. GREAT VESSELS The aortic root is normal in size. The ascending aorta is normal in size. Normal pulmonary venous nohemi w (Doppler). The IVC is normal in size and collapses >50% with inspiration. PERICARDIAL EFFUSION There is no pleural effusion. There is no evidence of significant pericardial effusion. Critical Notification Critical Value: No <Conclusion> The left ventricle is normal size. Left ventricle systolic function is normal. The Ejection Fraction is 50-55%. Possible small atrial septal defect detected with color Doppler. There is no significant aortic valvular stenosis. Doppler and Color Flow revealed no significant aortic regurgitation. Doppler and Color Flow revealed no mitral valve regurgitation noted. Doppler and Color Flow revealed mild tricuspid regurgitation. The PA pressure was estimated at 30 mmHg. There is no evidence of significant pericardial effusion.
[2016-06-15] MEDS ORDERED: METOCLOPRAMIDE HCL 10 MG/2 ML VIAL. IV PRN (11:30)
--- NOTE | 2016-06-15 12:40 | PDOC ---
CARDIO Progress Notes Date and Time Date of Service 06/15/16 Time of Evaluation 1100 Subjective Subjective: No Chest Pain, No shortness of breath, No Palpitations, Other (RLQ pain) Vitals Vitals Vital Signs Date Time Temp Pulse Resp B/P Pulse Ox O2 Delivery O2 Flow Rate FiO2 06/15/16 12:31 99 Room Air 06/15/16 10:49 97.7 112 18 127/75 97.7 Weight Weight [ ] Input and Output Intake and Output Intake and Output 06/15/16 07:00 Intake Total 1680 ml Balance 1680 ml Intake Oral 1680 ml # Voids 6 Laboratory Labs Laboratory Tests Test 06/14/16 16:43 06/14/16 21:11 06/15/16 05:45 06/15/16 06:51 Glucose (Fingerstick) 180mg/dL (70-99) 243mg/dL (70-99) 113mg/dL (70-99) White Blood Count 7.3x10^3/uL (4.0-11.0) Red Blood Count 4.65x10^6/uL (4.30-5.70) Hemoglobin 12.2g/dL (13.0-17.5) Hematocrit 36.8% (39.0-53.0) Mean Corpuscular Volume 79fL (79-100) Mean Corpuscular Hemoglobin 26pg (25-35) Mean Corpuscular Hemoglobin Concent 33g/dL (31-37) Red Cell Distribution Width 16.1% (11.5-14.5) Platelet Count 276x10^3/uL (140-400) Neutrophils (%) (Auto) 72% (31-73) Lymphocytes (%) (Auto) 16% (24-48) Monocytes (%) (Auto) 9% (0-9) Eosinophils (%) (Auto) 2% (0-3) Basophils (%) (Auto) 0% (0-3) Neutrophils # (Auto) 5.3x10^3uL (1.8-7.7) Lymphocytes # (Auto) 1.2x10^3/uL (1.0-4.8) Monocytes # (Auto) 0.7x10^3/uL (0.0-1.1) Eosinophils # (Auto) 0.1x10^3/uL (0.0-0.7) Basophils # (Auto) 0.0x10^3/uL (0.0-0.2) Sodium Level 139mmol/L (136-145) Potassium Level 3.8mmol/L (3.5-5.1) Chloride Level 103mmol/L (98-107) Carbon Dioxide Level 25mmol/L (21-32) Anion Gap 11 (6-14) Blood Urea Nitrogen 9mg/dL (8-26) Creatinine 0.6mg/dL (0.7-1.3) Estimated GFR (Cockcroft-Gault) 153.3 Glucose Level 111mg/dL (70-99) Calcium Level 9.2mg/dL (8.5-10.1) Triglycerides Level 33mg/dL (0-150) Cholesterol Level 126mg/dL (0-200) LDL Cholesterol, Calculated 57mg/dL (0-100) VLDL Cholesterol, Calculated 7mg/dL (0-40) HDL Cholesterol 62mg/dL (40-60) Cholesterol/HDL Ratio 2.0 Thyroid Stimulating Hormone (TSH) 1.511uIU/mL (0.358-3.74) Test 06/15/16 10:18 Glucose (Fingerstick) 227mg/dL (70-99) Physical Exam HEENT: Neck Supple W Full Motion Chest: Symmetric LUNGS: Clear to Auscultation Heart: S1S2, RRR Abdomen: Normal Aortic Impulse, Soft N/T Extremities: No Edema, No Calf Tenderness Neurology: alert, oriented, follow commands Assessment Assessment 1. Tachycardia unable to review tele- patient not on monitor (reaction to tele pads) remains tachy per vitals review; likely secondary to abdominal pain. TSH WNL. Echo pending. will start low-dose BB Further recommendations pending diagnostics 2. Abdominal pain h/o Crohn's disease and pancreatitis 3. History of bipolar disorder 4. Diabetes Per PCP MARTHA MARTEL APRN Jun 15, 2016 12:40
[2016-06-15] MEDS ORDERED: ACETAMINOPHEN 325 MG TABLET. PO PRN (13:45)
--- NOTE | 2016-06-15 13:46 | PDOC ---
PROGRESS NOTES Chief Complaint Chief Complaint 1. chronic Abd pain with NO Cronh's dz 2. loose BM , chronic 3. N/V with abd pain 4. chronic opoids user 5. DM2 UNcontrolled 6. bipolar disorder 7. ADHD 8. H/O panceatitis and diverticulosis 9/. recent right humerus fx wo sx 10. hyperphosphatemia 11. obesity 12. gastroparesis 13. tachycardia, 2/2 adderall likely plan: 1. fu with card echo normal 2. cont pain meds 3. add reglan dc tmr History of Present Illness History of Present Illness ran out of pain meds for 2 weeks still nausea chronic abd pain, usually at left side, saying right side is new to him. neg CT Vitals Vitals Vital Signs Date Time Temp Pulse Resp B/P Pulse Ox O2 Delivery O2 Flow Rate FiO2 06/15/16 12:31 99 Room Air 06/15/16 10:49 97.7 112 18 127/75 97.7 Physical Exam General: Alert, Oriented X3, Cooperative, No acute distress Heart: Regular rate Lungs: Clear Abdomen: Soft Extremities: No edema, Normal pulses, No tenderness/swelling Skin: No breakdown, Other (cellulitis on left arm) Labs LABS Laboratory Tests Test 06/14/16 16:43 06/14/16 21:11 06/15/16 05:45 06/15/16 06:51 Glucose (Fingerstick) 180mg/dL (70-99) 243mg/dL (70-99) 113mg/dL (70-99) White Blood Count 7.3x10^3/uL (4.0-11.0) Red Blood Count 4.65x10^6/uL (4.30-5.70) Hemoglobin 12.2g/dL (13.0-17.5) Hematocrit 36.8% (39.0-53.0) Mean Corpuscular Volume 79fL (79-100) Mean Corpuscular Hemoglobin 26pg (25-35) Mean Corpuscular Hemoglobin Concent 33g/dL (31-37) Red Cell Distribution Width 16.1% (11.5-14.5) Platelet Count 276x10^3/uL (140-400) Neutrophils (%) (Auto) 72% (31-73) Lymphocytes (%) (Auto) 16% (24-48) Monocytes (%) (Auto) 9% (0-9) Eosinophils (%) (Auto) 2% (0-3) Basophils (%) (Auto) 0% (0-3) Neutrophils # (Auto) 5.3x10^3uL (1.8-7.7) Lymphocytes # (Auto) 1.2x10^3/uL (1.0-4.8) Monocytes # (Auto) 0.7x10^3/uL (0.0-1.1) Eosinophils # (Auto) 0.1x10^3/uL (0.0-0.7) Basophils # (Auto) 0.0x10^3/uL (0.0-0.2) Sodium Level 139mmol/L (136-145) Potassium Level 3.8mmol/L (3.5-5.1) Chloride Level 103mmol/L (98-107) Carbon Dioxide Level 25mmol/L (21-32) Anion Gap 11 (6-14) Blood Urea Nitrogen 9mg/dL (8-26) Creatinine 0.6mg/dL (0.7-1.3) Estimated GFR (Cockcroft-Gault) 153.3 Glucose Level 111mg/dL (70-99) Calcium Level 9.2mg/dL (8.5-10.1) Triglycerides Level 33mg/dL (0-150) Cholesterol Level 126mg/dL (0-200) LDL Cholesterol, Calculated 57mg/dL (0-100) VLDL Cholesterol, Calculated 7mg/dL (0-40) HDL Cholesterol 62mg/dL (40-60) Cholesterol/HDL Ratio 2.0 Thyroid Stimulating Hormone (TSH) 1.511uIU/mL (0.358-3.74) Test 06/15/16 10:18 Glucose (Fingerstick) 227mg/dL (70-99) Review of Systems Review of Systems no fever, chills, sob or chest pain Assessment and Plan Assessmemt and Plan Problems Medical Problems: (1) Abdominal pain Status: Acute (2) Tachycardia Status: Acute Problems: Comment Review of Relevant I have reviewed the following items shante (where applicable) has been applied. Labs Laboratory Tests Test 06/13/16 16:57 06/13/16 21:00 06/14/16 07:19 06/14/16 11:06 Glucose (Fingerstick) 247mg/dL (70-99) 182mg/dL (70-99) 288mg/dL (70-99) 352mg/dL (70-99) Test 06/14/16 16:43 06/14/16 21:11 06/15/16 05:45 06/15/16 06:51 Glucose (Fingerstick) 180mg/dL (70-99) 243mg/dL (70-99) 113mg/dL (70-99) White Blood Count 7.3x10^3/uL (4.0-11.0) Red Blood Count 4.65x10^6/uL (4.30-5.70) Hemoglobin 12.2g/dL (13.0-17.5) Hematocrit 36.8% (39.0-53.0) Mean Corpuscular Volume 79fL (79-100) Mean Corpuscular Hemoglobin 26pg (25-35) Mean Corpuscular Hemoglobin Concent 33g/dL (31-37) Red Cell Distribution Width 16.1% (11.5-14.5) Platelet Count 276x10^3/uL (140-400) Neutrophils (%) (Auto) 72% (31-73) Lymphocytes (%) (Auto) 16% (24-48) Monocytes (%) (Auto) 9% (0-9) Eosinophils (%) (Auto) 2% (0-3) Basophils (%) (Auto) 0% (0-3) Neutrophils # (Auto) 5.3x10^3uL (1.8-7.7) Lymphocytes # (Auto) 1.2x10^3/uL (1.0-4.8) Monocytes # (Auto) 0.7x10^3/uL (0.0-1.1) Eosinophils # (Auto) 0.1x10^3/uL (0.0-0.7) Basophils # (Auto) 0.0x10^3/uL (0.0-0.2) Sodium Level 139mmol/L (136-145) Potassium Level 3.8mmol/L (3.5-5.1) Chloride Level 103mmol/L (98-107) Carbon Dioxide Level 25mmol/L (21-32) Anion Gap 11 (6-14) Blood Urea Nitrogen 9mg/dL (8-26) Creatinine 0.6mg/dL (0.7-1.3) Estimated GFR (Cockcroft-Gault) 153.3 Glucose Level 111mg/dL (70-99) Calcium Level 9.2mg/dL (8.5-10.1) Triglycerides Level 33mg/dL (0-150) Cholesterol Level 126mg/dL (0-200) LDL Cholesterol, Calculated 57mg/dL (0-100) VLDL Cholesterol, Calculated 7mg/dL (0-40) HDL Cholesterol 62mg/dL (40-60) Cholesterol/HDL Ratio 2.0 Thyroid Stimulating Hormone (TSH) 1.511uIU/mL (0.358-3.74) Test 06/15/16 10:18 Glucose (Fingerstick) 227mg/dL (70-99) Laboratory Tests Test 06/14/16 16:43 06/14/16 21:11 06/15/16 05:45 06/15/16 06:51 Glucose (Fingerstick) 180mg/dL (70-99) 243mg/dL (70-99) 113mg/dL (70-99) White Blood Count 7.3x10^3/uL (4.0-11.0) Red Blood Count 4.65x10^6/uL (4.30-5.70) Hemoglobin 12.2g/dL (13.0-17.5) Hematocrit 36.8% (39.0-53.0) Mean Corpuscular Volume 79fL (79-100) Mean Corpuscular Hemoglobin 26pg (25-35) Mean Corpuscular Hemoglobin Concent 33g/dL (31-37) Red Cell Distribution Width 16.1% (11.5-14.5) Platelet Count 276x10^3/uL (140-400) Neutrophils (%) (Auto) 72% (31-73) Lymphocytes (%) (Auto) 16% (24-48) Monocytes (%) (Auto) 9% (0-9) Eosinophils (%) (Auto) 2% (0-3) Basophils (%) (Auto) 0% (0-3) Neutrophils # (Auto) 5.3x10^3uL (1.8-7.7) Lymphocytes # (Auto) 1.2x10^3/uL (1.0-4.8) Monocytes # (Auto) 0.7x10^3/uL (0.0-1.1) Eosinophils # (Auto) 0.1x10^3/uL (0.0-0.7) Basophils # (Auto) 0.0x10^3/uL (0.0-0.2) Sodium Level 139mmol/L (136-145) Potassium Level 3.8mmol/L (3.5-5.1) Chloride Level 103mmol/L (98-107) Carbon Dioxide Level 25mmol/L (21-32) Anion Gap 11 (6-14) Blood Urea Nitrogen 9mg/dL (8-26) Creatinine 0.6mg/dL (0.7-1.3) Estimated GFR (Cockcroft-Gault) 153.3 Glucose Level 111mg/dL (70-99) Calcium Level 9.2mg/dL (8.5-10.1) Triglycerides Level 33mg/dL (0-150) Cholesterol Level 126mg/dL (0-200) LDL Cholesterol, Calculated 57mg/dL (0-100) VLDL Cholesterol, Calculated 7mg/dL (0-40) HDL Cholesterol 62mg/dL (40-60) Cholesterol/HDL Ratio 2.0 Thyroid Stimulating Hormone (TSH) 1.511uIU/mL (0.358-3.74) Test 06/15/16 10:18 Glucose (Fingerstick) 227mg/dL (70-99) Medications Current Medications Sodium Chloride 1,000 ml @ 1,000 mls/hr Q1H IV Last administered on 06/12/16 20:32; Start 06/12/16 at 20:12; Stop 06/12/16 at 21:11; Status DC Promethazine HCl/ Sodium Chloride (Phenergan/Iv Sodium Chloride 0.9% 50ml) 50.5 ml @ 151.5 mls/ hr 1X ONCE IV Last administered on 06/12/16 20:33; Start 06/12 at 20:15; Stop 06/12/16 at 20:34; Status DC Morphine Sulfate 4 mg 1X ONCE IV Last administered on 06/12/16 20:32; Start at 20:15; Stop 06/12/16 at 20:16; Status DC Iohexol (Omnipaque 300 Mg/ml) 75 ml 1X ONCE IV Last administered on 06/12/16 21:21; Start 06/12/16 at 20:30; Stop 06/12/16 at 20:31; Status DC Info (Do NOT chart on this entry -- for MONITORING) 1 each PRN DAILY PRN MC SEE COMMENTS; Start 06/12/16 at 20:45; Stop 06/14/16 at 20:44; Status DC Morphine Sulfate 4 mg 4 mg 1X ONCE IV Last administered on 06/12/16 21:59; Start 06/12/16 at 21:45; Stop 06/12/16 at 21:46; Status DC Sodium Chloride (Iv Sodium Chloride 0.9% 1000ml Bag) 1,000 ml @ 1,000 mls/hr 1X ONCE IV Last administered on 06/12/16 22:45; Start 06/12/16 at 22:45; Stop 06/12/16 at 23:44; Status DC Ondansetron HCl (Zofran) 4 mg PRN Q8HRS PRN IV NAUSEA/VOMITING Last administered on 06/13/16 13:30; Start 06/12/16 at 22:45; Stop 06/13/16 at 22:44; Status DC Morphine Sulfate 4 mg 4 mg PRN Q2HR PRN IV SEVERE PAIN Last administered on 06/13 21:01; Start 06/12/16 at 22:45; Stop 06/13/16 at 22:44; Status DC Sodium Chloride (Iv Sodium Chloride 0.9% 1000ml Bag) 1,000 ml @ 75 mls/hr [id number] IV Last administered on 06/13/16 11:56; Start 06/12/16 at 22:42; Stop at 22:41; Status DC Acetaminophen (Tylenol) 650 mg PRN Q4HRS PRN PO FEVER; Start 06/12/16 at 22:45; Stop 06/13/16 at 22:44; Status DC Clonazepam (Klonopin) 1 mg TID PO Last administered on 06/15/16 08:08; Start at 14:00 Insulin Aspart (Novolog) 20 units TIDAC SQ Last administered on 06/15/16 11:54 ; Start 06/13/16 at 11:30 Non-Formulary Medication 30 mg BID PO ADHD; Start 06/13/16 at 21:00; Status UNV Gabapentin (Neurontin) 600 mg TID PO Last administered on 06/15/16 08:08; Start 06/13/16 at 14:00 Insulin Detemir (Levemir) 80 units QHS SQ Last administered on 06/14/16 21:36; Start 06/13/16 at 21:00 Oxycodone HCl (Roxicodone) 10 mg PRN Q4HRS PRN PO PAIN Last administered on 06/15 12:31; Start 06/13/16 at 11:30 Morphine Sulfate 4 mg 4 mg PRN Q2HR PRN IV PAIN Last administered on 06/15/16 10:32; Start 06/14/16 at 11:15 Ceftriaxone Sodium/Sodium Chloride (Rocephin/Iv Sodium Chloride 0.9% 50ml) 50 ml @ 100 mls/hr Q24H IV Last administered on 06/14/16 16:32; Start 06/14/16 at 16:00 Ondansetron HCl (Zofran) 4 mg PRN Q6HRS PRN IV NAUSEA/VOMITING Last administered on 06/15/16 10:31; Start 06/15/16 at 09:30 Metoclopramide HCl (Reglan) 10 mg PRN Q6HRS PRN IV NAUSEA/VOMITING; Start at 11:30 Active Scripts Active Reported Oxycodone Hcl 10 Mg Tablet 1 Tab PO Q4-6HRS PRN Novolog Flexpen (Insulin Aspart) 100 Unit/1 Ml Insuln.pen 20 Unit SQ TIDAC Gabapentin 600 Mg Tablet 600 Mg PO TID Lantus Solostar (Insulin Glargine,Hum.rec.anlog) 100 Unit/1 Ml Insuln.pen 80 Unit SQ QHS Clonazepam 1 Mg Tablet 1 Tab PO TID Adderall 30 Mg Tablet (Dextroamphetamine/Amphetamine) 30 Mg Tablet 30 Mg PO BID Metformin Hcl 1,000 Mg Tablet 1,000 Mg PO BID Vitals/I & O Vital Sign - Last 24 Hours 06/14/16 06/14/16 06/14/16 06/14/16 14:00 14:25 15:00 16:31 Temp 97.9 97.9 Pulse 113 Resp 20 18 20 0 B/P 135/83 Pulse Ox 97 97 97 O2 Delivery Room Air Room Air Room Air 06/14/16 06/14/16 06/14/16 06/14/16 17:01 19:00 20:00 23:00 Temp 99.0 98.4 99.0 98.4 Pulse 124 122 Resp 20 18 18 B/P 134/88 129/84 Pulse Ox 96 96 O2 Delivery Room Air Room Air Room Air 06/15/16 06/15/16 06/15/16 06/15/16 03:00 05:53 07:00 08:11 Temp 98.2 97.7 98.2 97.7 Pulse 115 116 Resp 18 20 18 B/P 127/79 124/78 Pulse Ox 95 99 99 O2 Delivery Room Air Room Air Room Air Room Air 06/15/16 06/15/16 06/15/16 06/15/16 09:11 10:32 10:49 11:02 Temp 97.7 97.7 Pulse 112 Resp 18 B/P 127/75 Pulse Ox 99 99 99 99 O2 Delivery Room Air Room Air Room Air Room Air 06/15/16 12:31 Pulse Ox 99 O2 Delivery Room Air Intake and Output 06/14/16 06/14/16 06/15/16 15:00 23:00 07:00 Intake Total 240 ml 1040 ml 400 ml Balance 240 ml 1040 ml 400 ml TAMIE CASTILLO MD Jun 15, 2016 13:46
[2016-06-15 15:00] VITALS: BP 139/74
[2016-06-15] MEDS: METOPROLOL TART IMMED RELEASE 25 MG TABLET PO SCH ×2 (16:28→20:21)
[2016-06-15] MEDS: CEFTRIAXONE SODIUM 1 GM in IV NORMAL SALINE 50ML 50 ML IV SCH (16:29)
[2016-06-15 19:00] VITALS: BP 129/78
[2016-06-15 19:37] LABS: BARBITURATES NEG (NEG); BENZODIAZEPINES NEG (NEG); CANNABINOIDS NEG (NEG); COCAINE NEG (NEG); METHADONE NEG (NEG); OPIATES POS (NEG); PHENCYCLIDINE NEG (NEG)
[2016-06-15 19:38] LABS: ETHANOL, URINE NEG (NEG)
[2016-06-15] MEDS: INSULIN DETEMIR 300 UNITS/3 ML INSULN.PEN. SQ SCH (21:23)
[2016-06-15 23:00] VITALS: BP 122/77
[2016-06-16] MEDS: OXYCODONE IR 5 MG TABLET. PO PRN ×2 (05:53→10:13)
[2016-06-16 07:40] VITALS: BP 132/61
[2016-06-16] MEDS: INSULIN ASPART 300 UNITS/3 ML INSULN.PEN SQ SCH ×2 (08:18→11:30)
[2016-06-16] MEDS: NON FORMULARY ITEM (Dextroamphetamine/Amphetamine (Adderall 30 Mg Tablet) 30 MG) PO SCH (09:00)
[2016-06-16] MEDS: GABAPENTIN 300 MG CAPSULE. PO SCH (10:12)
[2016-06-16] MEDS: CLONAZEPAM 1 MG TABLET PO SCH (10:13)
[2016-06-16] MEDS: METOPROLOL TART IMMED RELEASE 25 MG TABLET PO SCH (10:14)
[2016-06-16] MEDS ORDERED: OXYC10TA PO (10:29)
[2016-06-16] MEDS ORDERED: CLON1TAB3 PO (10:29)
[2016-06-16 10:40] VITALS: BP 115/64
--- NOTE | 2016-06-16 12:17 | PDOC3 ---
Discharge Summary [facility] Date of Admission: Jun 12, 2016 Discharge Date: Jun 16, 2016 Admitting Diagnosis 1. chronic Abd pain with NO Cronh's dz 2. loose BM , chronic 3. N/V with abd pain 4. chronic opoids user 5. DM2 UNcontrolled 6. bipolar disorder 7. ADHD 8. H/O panceatitis and diverticulosis 9/. recent right humerus fx wo sx 10. hyperphosphatemia 11. obesity 12. gastroparesis 13. tachycardia, 2/2 adderall likely Problems: Final Diagnosis Problems Medical Problems: (1) Abdominal pain Status: Acute (2) Tachycardia Status: Acute CONSULTS card Brief Hospital Course Mr. Barber is a 35 old M, well know to us, no PCP, always comes here for pain meds when he ran it out. tachycardia likely 2/2 adderall, echo neg. chronic abd pain, abd CT neg. dc home with oxycodone and klonipin 30 pills each,pt agreed to find a pcp in 2 weeks. dc time 35min General: Alert, Oriented X3, Cooperative, No acute distress Heart: Regular rate Lungs: Clear Abdomen: Soft Extremities: No edema, Normal pulses, No tenderness/swelling Skin: No breakdown, some erythema with iv access on hand Patient History: Patient reports no known family medical history. Problems: Disposition home CONDITION AT DISCHARGE: Improved Diet regular Scheduled Clonazepam (Clonazepam) 1 TAB PO TID Dextroamphetamine/Amphetamine (Adderall 30 Mg Tablet) 30 MG PO BID (Reported) Gabapentin (Gabapentin) 600 MG PO TID (Reported) Insulin Aspart (Novolog Flexpen) 20 UNIT SQ TIDAC (Reported) Insulin Glargine,Hum.rec.anlog (Lantus Solostar) 80 UNIT SQ QHS (Reported) Metformin Hcl (Metformin Hcl) 1,000 MG PO BID (Reported) Scheduled PRN Oxycodone Hcl (Oxycodone Hcl) 1 TAB PO Q4-6HRS PRN PRN PAIN Discontinued Medications Insulin Detemir (Levemir) 45 UNIT SQ HS (Reported) Follow Up pcp in 2 weeks TAMIE CASTILLO MD Jun 16, 2016 12:17
== END 2016-06-16 13:22 | disposition home or self-care (01) | DRG 638 ==
LOC: ER 19:47 → 5 NORTH 22:42
PROVIDERS: ADMIT Internal Medicine; ATTEND Internal Medicine
DX: E11.65 Type 2 diabetes mellitus with hyperglycemia (principal); F11.20 Opioid dependence, uncomplicated; E11.43 Type 2 diabetes mellitus with diabetic autonomic (poly)neuropathy; R10.9 Unspecified abdominal pain; F31.9 Bipolar disorder, unspecified; F90.9 Attention-deficit hyperactivity disorder, unspecified type; G89.29 Other chronic pain; I10 Essential (primary) hypertension; K31.84 Gastroparesis; K57.90 Diverticulosis of intestine, part unspecified, without perforation or abscess without bleeding; K58.9 Irritable bowel syndrome, unspecified; F12.90 Cannabis use, unspecified, uncomplicated; M54.5 Low back pain; D64.9 Anemia, unspecified; R00.0 Tachycardia, unspecified; E66.9 Obesity, unspecified; Z68.30 Body mass index [BMI] 30.0-30.9, adult; Z82.49 Family history of ischemic heart disease and other diseases of the circulatory system; Z88.8 Allergy status to other drugs, medicaments and biological substances; Z79.4 Long term (current) use of insulin
CPT/HCPCS: 36415; 74177; 80048; 80053; 80061; 81001; 82947; 83690; 84443; 85027; 93306; 96365; 96375; 96376; G0481; J0696; J1815; J2270; J2405; J2550; J7030; Q9967; 99285-25

== ENCOUNTER 2016-07-05 11:42 | Inpatient (IN) | payer MEDICAID ==
[~2016-07-05] VITALS: Ht 185.4 cm; Wt 112.0 kg
[~2016-07-05 11:42] MED LIST changes: +INSU100I13 SQ; +OXYC10TA PO
[2016-07-05] MEDS ORDERED: PANTOPRAZOLE IV PUSH 40 MG VIAL. IVP ONE (12:15)
[2016-07-05] MEDS ORDERED: PANTOPRAZOLE SODIUM IV 80 MG in IV NORMAL SALINE 100ML 100 ML IV ONE (12:15)
[2016-07-05] MEDS ORDERED: ONDANSETRON PF 4 MG/2 ML VIAL. IV ONE (12:15)
[2016-07-05] MEDS ORDERED: HYDROMORPHONE 2 MG/ML VIAL. IV ONE ×2 (12:15→13:30)
[2016-07-05] MEDS ORDERED: IV NORMAL SALINE 1000ML BAG 1,000 ML IV ONE (12:15)
--- NOTE | 2016-07-05 12:22 | PHYS DOC ---
Past Medical History Past Medical History: Diabetes-Type II, Diverticulosis, Pancreatitis Additional Past Medical Histor: BI-POLAR, CHRONES DISEASE, ADHD Past Surgical History: No Surgical History Additional Past Surgical Histo: Colonoscopy, EGD Alcohol Use: Occasionally Drug Use: Marijuana, Methamphetamine Social History Narrative: pt denies 07/05/16 Adult General Chief Complaint Chief Complaint: HEMATEMESIS/VOMITING BLOOD HPI HPI 35-year-old male with history of Crohn's and diverticulosis who presents with 3 days of coffee-ground emesis with epigastric tenderness. Patient states he has been having ongoing right shoulder pain after surgery for the last 1 month and has been taking 6-8 800 mg Motrin tablets daily. He states initially he had streaks of bright red blood in his vomit and then it became coffee-ground in consistency. He localizes his pain to the epigastrium. He rates his pain an 8 out of 10. He states he last vomited earlier today. He has not had anything to eat or drink today. He did have a bowel movement earlier that was normal. He denies any dark stools or blood in his stool at all. He states his last EGD/ colonoscopy was several years ago. He currently [place] [facility] [place] [facility]. He denies any fever or chills. He denies any chest pain or shortness of breath. Review of Systems Review of Systems Constitutional: Denies fever or chills [] Eyes: Denies change in visual acuity, redness, or eye pain [] HENT: Denies nasal congestion or sore throat [] Respiratory: Denies cough or shortness of breath [] Cardiovascular: No additional information not addressed in HPI [] GI: Has abdominal pain, has nausea, has vomiting, denies bloody stools or diarrhea [] : Denies dysuria or hematuria [] Musculoskeletal: Denies back pain or joint pain [] Integument: Denies rash or skin lesions [] Neurologic: Denies headache, focal weakness or sensory changes [] Endocrine: Denies polyuria or polydipsia [] Current Medications Current Medications Current Medications Medications (Trade) Dose Ordered Sig/Trev Start Time Stop Time Status Last Admin Dose Admin Hydromorphone HCl (Dilaudid) 1 mg 1X ONCE 07/05/16 12:15 07/05/16 12:20 DC 07/05/16 12:52 1 MG Iohexol 75 ml 75 ml 1X ONCE 07/05/16 12:30 07/05/16 12:31 DC Ondansetron HCl (Zofran) 4 mg 1X ONCE 07/05/16 12:15 07/05/16 12:20 DC 07/05/16 12:46 4 MG Pantoprazole Sodium 80 mg 80 mg 1X ONCE 07/05/16 12:15 07/05/16 12:20 DC 07/05/16 12:48 80 MG Pantoprazole Sodium/Sodium Chloride (Protonix Iv/Iv Sodium Chloride 0.9% 100ml) 100 ml @ 10 mls/hr 1X ONCE 07/05/16 12:15 07/05/16 22:14 07/05/16 12:52 10 MLS/HR Sodium Chloride (Iv Sodium Chloride 0.9% 1000ml Bag) 1,000 ml @ 125 mls/hr Q8H 07/05/16 13:19 07/06/16 13:18 Allergies Allergies Allergies Coded Allergies Type Severity Reaction Last Updated Verified fentanyl Allergy Severe Throat Swells--Anaphylaxis 10/20/13 Yes haloperidol Allergy Severe "In ICU, almost .Toxicity." 10/20/13 Yes lithium Allergy Severe "In ICU-almost . Toxicity" 10/20/13 Yes ketorolac Allergy Intermediate Hives 10/20/13 Yes Physical Exam Physical Exam Constitutional: Well developed, well nourished, no acute distress, non-toxic appearance. [] HENT: Normocephalic, atraumatic, bilateral external ears normal, oropharynx moist, no oral exudates, nose normal. [] Eyes: PERRLA, EOMI, conjunctiva normal, no discharge. [] Neck: Normal range of motion, no tenderness, supple, no stridor. [] Cardiovascular:Heart rate regular rhythm, no murmur [] Lungs & Thorax: Bilateral breath sounds clear to auscultation [] Abdomen: Bowel sounds normal, soft, moderate epigastric and LUQ tenderness, no masses, no pulsatile masses. [] Skin: Warm, dry, no erythema, no rash. [] Back: No tenderness, no CVA tenderness. [] Extremities: No tenderness, no cyanosis, no clubbing, ROM intact, no edema. [] Neurologic: Alert and oriented X 3, normal motor function, normal sensory function, no focal deficits noted. [] Psychologic: Affect normal, judgement normal, mood normal. [] Current Patient Data Vital Signs Vital Signs Date Time Temp Pulse Resp B/P Pulse Ox O2 Delivery O2 Flow Rate FiO2 07/05/16 13:24 108 15 116/66 96 Room Air 07/05/16 11:44 97.4 97.4 Lab Values Laboratory Tests Test 07/05/16 13:08 White Blood Count 5.2x10^3/uL (4.0-11.0) Red Blood Count 4.56x10^6/uL (4.30-5.70) Hemoglobin 11.5g/dL (13.0-17.5) L Hematocrit 36.1% (39.0-53.0) L Mean Corpuscular Volume 79fL (79-100) Mean Corpuscular Hemoglobin 25pg (25-35) Mean Corpuscular Hemoglobin Concent 32g/dL (31-37) Red Cell Distribution Width 15.4% (11.5-14.5) H Platelet Count 290x10^3/uL (140-400) Neutrophils (%) (Auto) 68% (31-73) Lymphocytes (%) (Auto) 22% (24-48) L Monocytes (%) (Auto) 7% (0-9) Eosinophils (%) (Auto) 2% (0-3) Basophils (%) (Auto) 1% (0-3) Neutrophils # (Auto) 3.5x10^3uL (1.8-7.7) Lymphocytes # (Auto) 1.1x10^3/uL (1.0-4.8) Monocytes # (Auto) 0.4x10^3/uL (0.0-1.1) Eosinophils # (Auto) 0.1x10^3/uL (0.0-0.7) Basophils # (Auto) 0.0x10^3/uL (0.0-0.2) Sodium Level 138mmol/L (136-145) Potassium Level 4.1mmol/L (3.5-5.1) Chloride Level 100mmol/L (98-107) Carbon Dioxide Level 28mmol/L (21-32) Anion Gap 10 (6-14) Blood Urea Nitrogen 12mg/dL (8-26) Creatinine 0.8mg/dL (0.7-1.3) Estimated GFR (Cockcroft-Gault) 110.0 BUN/Creatinine Ratio 15 (6-20) Glucose Level 125mg/dL (70-99) H Calcium Level 9.4mg/dL (8.5-10.1) Total Bilirubin 0.2mg/dL (0.2-1.0) Aspartate Amino Transferase (AST) 15U/L (15-37) Alanine Aminotransferase (ALT) 25U/L (16-63) Alkaline Phosphatase 134U/L (46-116) H Total Protein 7.9g/dL (6.4-8.2) Albumin 3.3g/dL (3.4-5.0) L Albumin/Globulin Ratio 0.7 (1.0-1.7) L Lipase 68U/L (73-393) L Laboratory Tests 07/05/16 13:08 Laboratory Tests 07/05/16 13:08 EKG EKG [] Radiology/Procedures Radiology/Procedures Indication epigastric pain. History of Crohn's disease. History of diverticulitis and pancreatitis. IV contrast imaging through the abdomen and pelvis was performed. 75 cc of Omnipaque 300 was administered intravenously. No oral contrast was administered. Note is made of a similar examination just over 3 weeks earlier. There is some minimal volume loss at the left lung base likely reflecting atelectasis. No focal mass is seen in the liver or spleen and the gallbladder appears grossly normal. No pancreatic abnormality is seen. There are a few small lymph nodes in the abdominal mesentery. These are probably incidental. Definite pathologic central or retroperitoneal adenopathy is not seen. The adrenal glands and kidneys appear normal. A mass inflammatory process or acute finding within the abdomen is not seen. Occasional diverticula are seen associated with the large bowel. Active inflammation is not seen. Acute finding in the pelvis is not apparent. IMPRESSION: No acute finding seen in the abdomen or pelvis. Slight volume loss in the left lower lobe likely reflects atelectasis Course & Med Decision Making Course & Med Decision Making Pertinent Labs and Imaging studies reviewed. (See chart for details) This 35-year-old male who is likely having a gastric ulcer from his overuse of NSAIDs will be admitted to the hospital for further evaluation and treatment. Patient will be given a bolus of Protonix and started on Protonix drip. I will do full laboratory workup and imaging of his abdomen as well. GI consult will be placed. I counseled the patient at length that he is to discontinue all NSAID use until his ulcer heals. His laboratory workup is unrevealing. A CT of his abdomen and pelvis did not reveal any acute abnormality. I will be admitting him for his ongoing coffee- ground emesis and abdominal pain. GI consult was placed. I discussed the need to admit the patient with the hospitalist, Dr. Pineda, who agreed to accept the patient for further evaluation and treatment. Dragon Disclaimer Dragon Disclaimer This electronic medical record was generated, in whole or in part, using a voice recognition dictation system. Departure Departure Impression: Primary Impression: Abdominal pain Additional Impression: Coffee ground emesis Disposition: ADMITTED INPATIENT Admitting Physician: Kalina Pineda Condition: STABLE Referrals: NO PCP (PCP) Problem Qualifiers AARON CONNER DO Jul 05, 2016 12:22
[2016-07-05] MEDS ORDERED: IOHEXOL 300 MG/ML 75 ML VIAL IV ONE (12:30)
[2016-07-05 13:24] LABS: BASO % 1 % (0-3); EOS % 2 % (0-3); HEMATOCRIT 36.1 % (39.0-53.0); HEMOGLOBIN 11.5 g/dL (13.0-17.5); LYMPH # 1.1 x10^3/uL (1.0-4.8); LYMPH % 22 % (24-48); MEAN CORPUSCULAR HEMOGLOBIN 25 pg (25-35); MEAN CORPUSCULAR HGB CONC 32 g/dL (31-37); MEAN CORPUSCULAR VOLUME 79 fL (79-100); MONO % 7 % (0-9); NEUT % 68 % (31-73); PLATELET COUNT 290 x10^3/uL (140-400); RED BLOOD COUNT 4.56 x10^6/uL (4.30-5.70); RED CELL DISTRIBUTION WIDTH 15.4 % (11.5-14.5); WHITE BLOOD COUNT 5.2 x10^3/uL (4.0-11.0)
[2016-07-05] MEDS ORDERED: FENTANYL PF 100 MCG/2 ML VIAL. IV PRN (13:30)
[2016-07-05] MEDS ORDERED: ONDANSETRON PF 4 MG/2 ML VIAL. IV PRN ×2 (13:30→14:04)
[2016-07-05 13:38] LABS: CALCIUM 9.4 mg/dL (8.5-10.1); CREATININE 0.8 mg/dL (0.7-1.3); POTASSIUM 4.1 mmol/L (3.5-5.1)
[2016-07-05 13:43] LABS: ALBUMIN 3.3 g/dL (3.4-5.0); ALBUMIN/GLOBULIN RATIO 0.7 (1.0-1.7); TOTAL BILIRUBIN 0.2 mg/dL (0.2-1.0); TOTAL PROTEIN 7.9 g/dL (6.4-8.2)
[2016-07-05] MEDS ORDERED: ACETAMINOPHEN 500 MG TABLET PO PRN (14:15)
[2016-07-05] MEDS ORDERED: DEXTROSE 50% 25 GM / 50ML DISP.SYRIN. IV PRN (14:15)
--- NOTE | 2016-07-05 14:21 | PDOC1 ---
History and Physical Date of Admission Date of Admission DATE: 07/05/16 TIME: 14:07 Identification/Chief Complaint Chief Complaint vomiting black stuff History of Present Illness History of Present Illness 35 y.o male who has been popping ibuprofen pills like tic tacs for shoulder pain afetr shoulder sx Mar 2016. Looking at old records, he would either do ibuprofen or dilaudid PO. Seemingly he ran out of Dilaudid PO ( happened in past admit), Also hx Crohns dx 2010, claims gets flares of bloody BM ,. But none this admit. Significant black emesis, tested positive for blood? started on PPI gtt, Hgb 11, BP ok, slightly tachycardic though 1-teens. Looking at old records, well known to Dr. da silva: (below is gI note) GI history/previous workup: -diverticulitis w/ abscess requiring percutaneous drainage. -pancreatitis related to Depakote use. -two previous colonoscopies: 2006 (after diverticulitis), 2010 in [place] at which time he was told he had diverticulosis and Crohn's disease. -no treatment for Crohn's except steroids during hospital admissions (last treated w/ oral prednisone here in 12/2015, has been started on IV steroids this admission). -2013: GET markedly delayed w/ T1/2 time of 350 minutes, note h/o uncontrolled IDDM (A1c in 12/2015 was 12, initial glucose readings this admission in 500-600 range, last check 257). -2014: anti-Saccaromyces cerevisiae antibody borderline positive. -2016: CT in Nov w/ mild sigmoid diverticulitis; CT in Sept w/ persistent nonspecific, questionably slightly increased hazy density of the mesenteric fat centrally, a few interspersed nonspecific nodes; CT in Nov w/ nonspecific chronic persistent fat stranding identified in mesenteric root similar to prior exam (nonspecific mesenteritis, less likely pancreatitis), diverticulosis, normal appendix. -2016: CT in Apr (this admission) w/ possible mesenteric panniculitis and mildly prominent mesenteric/retroperitoneal lymph nodes (stable), diverticulosis , and no evidence of Crohn's disease (mural thickening, fistula, abscess) ?H/o IBD/Crohn's H/o diverticulitis -history of abscess requiring drainage in the past, Gastroparesis -abnormal GET in 2013 Uncontrolled DM with hyperglycemia on admission Left shoulder injury -traumatic fracture, followed at [facility] -has been on ibuprofen and Dilaudid (which he ran out of prior to ER evaluation) Gastroparesis, uncontrolled DM likely contributing to GI symptom HE claims was on Humira for his crohns did well with that, and just gets unrecalled dose pred for flares. Past Medical History Cardiovascular: HTN GI: Inflam bowel disease, Irritable bowel disease Heme/Onc: No pertinent hx Hepatobiliary: No pertinent hx Psych: Bipolar, Depression Musculoskeletal: low back pain, Osteoarthritis Rheumatologic: No pertinent hx Infectious disease: No pertinent hx Renal/: No pertinent hx Endocrine: Diabetes Past Surgical History Past Surgical History: No pertinent history Family History Family History: No Significant, Hypertension Social History Smoke: No ALCOHOL: none Drugs: None, Marijuana Current Medications Current Medications Current Medications Hydromorphone HCl (Dilaudid) 1 mg 1X ONCE IV Last administered on 07/05/16 12 :52; Start 07/05/16 at 12:15; Stop 07/05/16 at 12:20; Status DC Ondansetron HCl 4 mg 4 mg 1X ONCE IV Last administered on 07/05/16 12:46; Start 07/05/16 at 12:15; Stop 07/05/16 at 12:20; Status DC Sodium Chloride (Iv Sodium Chloride 0.9% 1000ml Bag) 1,000 ml @ 1,000 mls/hr 1X ONCE IV Last administered on 07/05/16 12:38; Start 07/05/16 at 12:15; Stop 07/05/16 at 13:14; Status DC Pantoprazole Sodium 80 mg 80 mg 1X ONCE IVP Last administered on 07/05/16 12: 48; Start 07/05/16 at 12:15; Stop 07/05/16 at 12:20; Status DC Pantoprazole Sodium/Sodium Chloride (Protonix Iv/Iv Sodium Chloride 0.9% 100ml) 100 ml @ 10 mls/hr 1X ONCE IV Last administered on 07/05/16 12:52; Start at 12:15; Stop 07/05/16 at 22:14 Iohexol (Omnipaque 300 Mg/ml) 75 ml 1X ONCE IV ; Start 07/05/16 at 12:30; Stop 07/05/16 at 12:31; Status DC Ondansetron HCl (Zofran) 4 mg PRN Q8HRS PRN IV NAUSEA/VOMITING; Start 07/05/16 at 13:30; Stop 07/05/16 at 14:07; Status DC Fentanyl Citrate 50 mcg 50 mcg PRN Q2HR PRN IV PAIN; Start 07/05/16 at 13:30; Stop 07/06/16 at 13:29; Status UNV Sodium Chloride (Iv Sodium Chloride 0.9% 1000ml Bag) 1,000 ml @ 125 mls/hr Q8H IV ; Start 07/05/16 at 13:19; Stop 07/06/16 at 13:18 Hydromorphone HCl (Dilaudid) 1 mg 1X ONCE IV Last administered on 07/05/16t 13 :45; Start 07/05/16 at 13:30; Stop 07/05/16 at 13:31; Status DC Hydromorphone HCl (Dilaudid) 1 mg PRN Q2HR PRN IV PAIN SEVERE; Start 07/05/16 at 13:30 Ondansetron HCl (Zofran) 4 mg PRN Q6HRS PRN IV NAUSEA/VOMITING; Start 07/05/16 at 14:04; Status UNV Acetaminophen (Tylenol) 500 mg PRN Q6HRS PRN PO MILD PAIN / TEMP; Start at 14:15; Status UNV Pantoprazole Sodium (Protonix Vial) 40 mg BID IVP ; Start 07/05/16 at 21:00; Status UNV Clonazepam (Klonopin) 1 mg TID PO ; Start 07/05/16 at 21:00; Status UNV Non-Formulary Medication 30 mg BID PO ADHD; Start 07/05/16 at 21:00; Status UNV Non-Formulary Medication 600 mg TID PO mood stabilizer; Start 07/05/16 at 21:00 ; Status UNV Non-Formulary Medication 1 tab Q4-6HRS PRN PO PAIN; Start 07/05/16 at 14:15; Status UNV Active Scripts Active Oxycodone Hcl 10 Mg Tablet 1 Tab PO Q4-6HRS PRN Clonazepam 1 Mg Tablet 1 Tab PO TID Reported Novolog Flexpen (Insulin Aspart) 100 Unit/1 Ml Insuln.pen 20 Unit SQ TIDAC Gabapentin 600 Mg Tablet 600 Mg PO TID Lantus Solostar (Insulin Glargine,Hum.rec.anlog) 100 Unit/1 Ml Insuln.pen 80 Unit SQ QHS Adderall 30 Mg Tablet (Dextroamphetamine/Amphetamine) 30 Mg Tablet 30 Mg PO BID Metformin Hcl 1,000 Mg Tablet 1,000 Mg PO BID Allergies Allergies: Coded Allergies: fentanyl (Verified Allergy, Severe, Throat Swells--Anaphylaxis, 10/20/13) haloperidol (Verified Allergy, Severe, "In ICU, almost .Toxicity.", 02/23) lithium (Verified Allergy, Severe, "In ICU-almost . Toxicity", 10/20/13 ) ketorolac (Verified Allergy, Intermediate, Hives, 10/20/13) ROS General: No: Appetite, Chills, Fatigue, Malaise, Night Sweats, Other PSYCHOLOGICAL ROS: No: Anxiety, Behavioral Disorder, Concentration difficultie , Decreased libido, Depression, Disorientation, Hallucinations, Hostility, Irritablity, Memory difficulties, Mood Swings, Obsessive thoughts, Other, Physical abuse, Sexual abuse, Sleep disturbances, Suicidal ideation Eyes: No Blurry vision, No Decreased vision, No Double vision, No Dry eyes, No Excessive tearing, No Eye Pain, No Itchy Eyes, No Loss of vision, No Other, No Photophobia, No Scotomata, No Uses contacts, No Uses glasses HEENT: No: Epistaxis, Heacaches, Hearing change, Nasal congestion, Nasal discharge, Oral lesions, Other, Sinus pain, Sneezing, Snoring, Sore Throat, Tinnitus, Vertigo, Visual Changes, Vocal changes ALLERGY AND IMMUNOLOGY: No: Hives, Insect Bite Sensitivity, Itchy/Watery Eyes, Nasal Congestion, Other, Post Nasal Drip, Seasonal Allergies Hematological and Lymphatic: No: Bleeding Problems, Blood Clots, Blood Transfusions, Brusing, Night Sweats, Other, Pallor, Swollen Lymph Nodes ENDOCRINE: No: Breast Changes, Galactorrhea, Hair Pattern Changes, Hot Flashes , Malaise/lethargy, Mood Swings, Other, Palpitations, Polydipsia/polyuria, Skin Changes, Temperature Intolerance, Unexpected Weight Changes Breast: No New/Changing Breast Lumps, No Nipple changes, No Nipple discharge, No Other Respiratory: No: Cough, Hemoptysis, Orthopnea, Other, Pleuritic Pain, SOB with excertion, Shortness of breath, Sputum Changes, Stridor, Tachypnea, Wheezing Cardiovascular: No Chest Pain, No Edema, No Lt Headedness, No Orthopnea, No Other, No Palpitations, No Paroxysmal Noc. Dyspnea Gastrointestinal: Yes Abdominal Pain, Yes Nausea, Yes Vomiting Genitourinary: No , No , No , No , No , No , No , No Discharge, No Dysuria, No Flank Pain, No Frequency, No Hematuria, No Incontinence, No Other, No Pain, No Retention, No Urgency Neurological: Yes Other (shoulder pain), No Behavorial Changes, No Bowel/Bladder ControlChng, No Confusion, No Dizziness, No Gait Disturbance, No Headaches, No Impaired Coord/balance, No Memory Loss, No Numbness/Tingling, No Seizures, No Speech Problems, No Tremors, No Visual Changes, No Weakness Skin: No Acne, No Dry Skin, No Eczema, No Hair Changes, No Lumps, No Mole Changes, No Mottling, No Nail Changes, No Other, No Pruritus, No Rash, No Skin Lesion Changes Physical Exam General: Alert, Oriented X3, Cooperative, No acute distress HEENT: Atraumatic, PERRLA, EOMI Lungs: Clear to auscultation, Normal air movement Heart: S1S2, RRR, no thrills, no rubs, no gallops, no murmurs Cardiovascular: S1, S2 Breasts: Normal Abdomen: Normal bowel sounds, Soft, No tenderness, No hepatosplenomegaly, No masses Male Genitals Exam: normal genitalia, normal prostate Rectal Exam: not examined PELVIC: Nml ext genitalia Extremities: No clubbing, No cyanosis, No edema, Normal pulses, No tenderness/ swelling Skin: No rashes, No breakdown, No significant lesion Neuro: Normal gait, Normal speech, Strength at 5/5 X4 ext, Normal tone, Sensation intact, Cranial nerves 3-12 NL, Reflexes 2+ Psych/Mental Status: Mental status NL, Mood NL Vitals Vitals Vital Signs Date Time Temp Pulse Resp B/P Pulse Ox O2 Delivery O2 Flow Rate FiO2 07/05/16 12:52 20 07/05/16 11:44 97.4 121 122/81 99 Room Air 97.4 Labs Labs Laboratory Tests Test 07/05/16 13:08 White Blood Count 5.2x10^3/uL (4.0-11.0) Red Blood Count 4.56x10^6/uL (4.30-5.70) Hemoglobin 11.5g/dL (13.0-17.5) Hematocrit 36.1% (39.0-53.0) Mean Corpuscular Volume 79fL (79-100) Mean Corpuscular Hemoglobin 25pg (25-35) Mean Corpuscular Hemoglobin Concent 32g/dL (31-37) Red Cell Distribution Width 15.4% (11.5-14.5) Platelet Count 290x10^3/uL (140-400) Neutrophils (%) (Auto) 68% (31-73) Lymphocytes (%) (Auto) 22% (24-48) Monocytes (%) (Auto) 7% (0-9) Eosinophils (%) (Auto) 2% (0-3) Basophils (%) (Auto) 1% (0-3) Neutrophils # (Auto) 3.5x10^3uL (1.8-7.7) Lymphocytes # (Auto) 1.1x10^3/uL (1.0-4.8) Monocytes # (Auto) 0.4x10^3/uL (0.0-1.1) Eosinophils # (Auto) 0.1x10^3/uL (0.0-0.7) Basophils # (Auto) 0.0x10^3/uL (0.0-0.2) Sodium Level 138mmol/L (136-145) Potassium Level 4.1mmol/L (3.5-5.1) Chloride Level 100mmol/L (98-107) Carbon Dioxide Level 28mmol/L (21-32) Anion Gap 10 (6-14) Blood Urea Nitrogen 12mg/dL (8-26) Creatinine 0.8mg/dL (0.7-1.3) Estimated GFR (Cockcroft-Gault) 110.0 BUN/Creatinine Ratio 15 (6-20) Glucose Level 125mg/dL (70-99) Calcium Level 9.4mg/dL (8.5-10.1) Total Bilirubin 0.2mg/dL (0.2-1.0) Aspartate Amino Transf (AST/SGOT) 15U/L (15-37) Alanine Aminotransferase (ALT/SGPT) 25U/L (16-63) Alkaline Phosphatase 134U/L (46-116) Total Protein 7.9g/dL (6.4-8.2) Albumin 3.3g/dL (3.4-5.0) Albumin/Globulin Ratio 0.7 (1.0-1.7) Lipase 68U/L (73-393) Laboratory Tests Test 07/05/16 13:08 White Blood Count 5.2x10^3/uL (4.0-11.0) Red Blood Count 4.56x10^6/uL (4.30-5.70) Hemoglobin 11.5g/dL (13.0-17.5) Hematocrit 36.1% (39.0-53.0) Mean Corpuscular Volume 79fL (79-100) Mean Corpuscular Hemoglobin 25pg (25-35) Mean Corpuscular Hemoglobin Concent 32g/dL (31-37) Red Cell Distribution Width 15.4% (11.5-14.5) Platelet Count 290x10^3/uL (140-400) Neutrophils (%) (Auto) 68% (31-73) Lymphocytes (%) (Auto) 22% (24-48) Monocytes (%) (Auto) 7% (0-9) Eosinophils (%) (Auto) 2% (0-3) Basophils (%) (Auto) 1% (0-3) Neutrophils # (Auto) 3.5x10^3uL (1.8-7.7) Lymphocytes # (Auto) 1.1x10^3/uL (1.0-4.8) Monocytes # (Auto) 0.4x10^3/uL (0.0-1.1) Eosinophils # (Auto) 0.1x10^3/uL (0.0-0.7) Basophils # (Auto) 0.0x10^3/uL (0.0-0.2) Sodium Level 138mmol/L (136-145) Potassium Level 4.1mmol/L (3.5-5.1) Chloride Level 100mmol/L (98-107) Carbon Dioxide Level 28mmol/L (21-32) Anion Gap 10 (6-14) Blood Urea Nitrogen 12mg/dL (8-26) Creatinine 0.8mg/dL (0.7-1.3) Estimated GFR (Cockcroft-Gault) 110.0 BUN/Creatinine Ratio 15 (6-20) Glucose Level 125mg/dL (70-99) Calcium Level 9.4mg/dL (8.5-10.1) Total Bilirubin 0.2mg/dL (0.2-1.0) Aspartate Amino Transf (AST/SGOT) 15U/L (15-37) Alanine Aminotransferase (ALT/SGPT) 25U/L (16-63) Alkaline Phosphatase 134U/L (46-116) Total Protein 7.9g/dL (6.4-8.2) Albumin 3.3g/dL (3.4-5.0) Albumin/Globulin Ratio 0.7 (1.0-1.7) Lipase 68U/L (73-393) VTE Prophylaxis Ordered VTE Prophylaxis Devices: Contraindicated VTE Pharmacological Prophylaxi: Contraindicated Assessment/Plan Assessment/Plan 1. Black emesis, likely blood from heavy NSAID use for left shoulder traumatic injury Mar 2016 2 H/o IBD/Crohn's NOT in flare -diagnosed elsewhere in 2010s/o HUmira in past (did well) and just on PO pred for flares 3. H/o diverticulitis -history of abscess requiring drainage in the past, mild in the sigmoid on CT 2015, other CTs in 12/2015, 01/2016, 02/2016, and 04/2016 showed diverticulosis w/ o diverticulitis 4. Gastroparesis -abnormal GET in 2013 5. Uncontrolled DM -A1c 12.0 in 12/2015 6.Left shoulder injury -traumatic fracture, followed at -has been on ibuprofen and Dilaudid PLAn: NPO, IVF Gastro occult if not yet done Agree with PPI gtt GI consult\\ NO nSAIDS Hold insuln, metformin since NPO SSI ACHS SCds only HH yobany seen at ER [facility] WOLFGANG BENTLEY MD Jul 05, 2016 14:21
[2016-07-05] MEDS ORDERED: OXYCODONE IR 5 MG TABLET. PO PRN (14:30)
[2016-07-05] MEDS: HYDROMORPHONE 2 MG/ML VIAL. IV PRN ×4 (14:42→22:14)
[2016-07-05 15:00] VITALS: BP 149/88
--- NOTE | 2016-07-05 15:04 | RAD ---
Indication epigastric pain. History of Crohn's disease. History of diverticulitis and pancreatitis. IV contrast imaging through the abdomen and pelvis was performed. 75 cc of Omnipaque 300 was administered intravenously. No oral contrast was administered. Note is made of a similar examination just over 3 weeks earlier. There is some minimal volume loss at the left lung base likely reflecting atelectasis. No focal mass is seen in the liver or spleen and the gallbladder appears grossly normal. No pancreatic abnormality is seen. There are a few small lymph nodes in the abdominal mesentery. These are probably incidental. Definite pathologic central or retroperitoneal adenopathy is not seen. The adrenal glands and kidneys appear normal. A mass inflammatory process or acute finding within the abdomen is not seen. Occasional diverticula are seen associated with the large bowel. Active inflammation is not seen. Acute finding in the pelvis is not apparent. IMPRESSION: No acute finding seen in the abdomen or pelvis. Slight volume loss in the left lower lobe likely reflects atelectasis
[2016-07-05 16:10] VITALS: BP 108/67
[2016-07-05] MEDS: INSULIN ASPART 300 UNITS/3 ML INSULN.PEN SQ SCH (17:00)
--- NOTE | 2016-07-05 18:29 | ACF ---
Admission Forms Criteria ABDOMINAL PAIN Clinical Indications for Admission to Inpatient Care (Place 'X' for any and all applicable criteria): Admission is indicated for ANY ONE of the following(1)(2)(3)(4)(5): [X]I. Inpatient admission required rather than observation care (Also use Abdominal Pain: Observation Care, as appropriate) because of ANY ONE of the following: [X]a) Severe pain requiring acute inpatient management [ ]b) Identification of etiology/finding that requires inpatient care (eg, aortic dissection, free air) [ ]c) Absent bowel sounds with complete ileus(6) [ ]d) Suspected toxic megacolon [ ]e) Severe electrolyte abnormalities requiring inpatient care [ ]f) High fever or infection requiring inpatient admission as indicated by ANY ONE of following(7)(8): [ ] i) Appropriate outpatient or observational care antimicrobial treatment unavailable, not effective, or not feasible [ ] ii) Documented bacteremia [ ] iii) Temperature > 104.9 degrees F (oral) [ ] iv) T >103.1 F (oral) or < 96.8 F(rectal) that does not respond to all emergency treatment measures [ ]g) Signs of intestinal obstruction [B] [ ]h) Hemodynamic instability [ ]i) IV fluid to replace significant ongoing losses (greater than 3 L/m2 per day) (12)(13) [ ]j) Percutaneous or open drainage (eg, abscess, biliary tract ) procedures [ ]k) Parenteral nutrition regimen that must be implemented on inpatient basis [ ]l) Other condition,treatment or monitoring requiring inpatient admission. [ ]II. Peritoneal signs present [ ]III. Surgery needed that cannot be performed on an ambulatory basis. [ ]IV. Evaluation requires patient to not eat or drink for extended period ( eg, more than 24 hours). [ ]V. Contraindications and/or Inappropriate clinical situations for Observational Care in patients with abdominal pain, when ANY ONE of the following is required: [ ]a) Thorough evaluation is required to prevent catastrophic events due to delays in diagnosing (e.g.Mesenteric ischemia) 1,3 [ ]b) Patient with severe pathology or with chronic symptoms unlikely to improve in the ED stay (3) [ ]. General contraindications and/or Inappropriate clinical situations for Observational Care in patients with abdominal pain, when ANY ONE of the following is required: [ ]a) Prediction of prolongation of LOS based on ANY ONE of the following may be considered as a contraindication for observational care 2, 3, 4, 5, 6, 7, 8, 9, 10, 11 [ ]i) Age > 65 yrs. [ ]ii) Patient arriving by ambulance [ ]iii) Patient with high acuity [ ]iv) Patient requiring vital sign monitoring [ ]v) Patient on IV medication [ ]b) Systolic blood pressures 180mmHg 3,12 [ ]c) Patient with altered mental status including delirium and other alteration of consciousness, (3) [ ]d) Patient whose discharge disposition will be to a [facility]ci home or rehabilitation home should not be managed in Emergency Department Observation Unit. CMS rule requires 3 days hospital stay before such placement.3,13 [ ]e) Patient with failure to thrive due to broad array of etiologies 3,16,17 [ ]f) Inability to ambulate 3,14 Extended stay beyond goal length of stay may be needed for(2)(3): [ ]a) Persistent abdominal pain with suspected intra-abdominal process [ ]b) Diagnosed condition requiring continued stay (e.g., pancreatitis, complicated diverticulitis) [ ]c) Surgery (e.g., colectomy) The original [employer] content created by [employer] has been revised. The portions of the content which have been revised are identified through the use of italic text or in bold, and [facility] has neither reviewed nor approved the modified material.All other unmodified content is copyright [employer]. Please see references footnoted in the original [employer] edition 2016 Admission Criteria Met?: Yes NAILA BYRNE Jul 05, 2016 18:29
[2016-07-05 19:00] VITALS: BP 122/80
[2016-07-05] MEDS: IV NORMAL SALINE 1000ML BAG 1,000 ML IV SCH ×2 (19:45→21:19)
[2016-07-05] MEDS: CLONAZEPAM 1 MG TABLET PO SCH (20:59)
[2016-07-05] MEDS: GABAPENTIN 300 MG CAPSULE. PO SCH (20:59)
[2016-07-05] MEDS: PANTOPRAZOLE IV PUSH 40 MG VIAL. IVP SCH (21:00)
[2016-07-05] MEDS ORDERED: NON FORMULARY ITEM (Dextroamphetamine/Amphetamine (Adderall 30 Mg Tablet) 30 MG) PO SCH (21:00)
[2016-07-05] MEDS: NICOTINE POLACRILEX 2MG GUM PACKAGE of 12. BC PRN ×2 (22:33→23:27)
[2016-07-05 23:00] VITALS: BP 122/85
[2016-07-06] MEDS: NICOTINE POLACRILEX 2MG GUM PACKAGE of 12. BC PRN ×9 (00:31→20:51)
[2016-07-06] MEDS: HYDROMORPHONE 2 MG/ML VIAL. IV PRN ×6 (00:33→15:18)
[2016-07-06] MEDS: IV NORMAL SALINE 1000ML BAG 1,000 ML IV SCH (03:50)
--- NOTE | 2016-07-06 05:15 | CONS ---
DATE OF CONSULTATION: 07/05/2016 Dr. Lizy Henry dictating a GI consultation for Dr. Abdiaziz Boswell. I am covering for him today. REQUESTING PHYSICIAN: Dr. Pineda. PRIMARY CARE PHYSICIAN: None. REASON FOR CONSULTATION: Hematemesis. HISTORY OF PRESENT ILLNESS: This is a 35-year-old gentleman with a past medical history of Crohn's disease, who came in for coffee-ground emesis. He states that he has been taking ibuprofen pills like they were Tic Tac for shoulder pain after he had shoulder fracture in 03/2016. He reports that he did not know that he was not supposed to take NSAIDs with a diagnosis of Crohn's. He denies any red blood in his emesis. He was most recently on Humira 6 months ago, but has not been taking any medications and has not been following with a process improvement consultant. Today, he states he has diffuse abdominal pain. He is having 2-3 normal bowel movements a day without any blood. He reports that his last EGD was 5 years ago and was unrevealing. PAST MEDICAL HISTORY: 1. Diverticulitis with abscess, we are planning percutaneous drainage. 2. Pancreatitis related to Depakote use. 3. Two previous colonoscopies in 2006, after diverticulitis in 2010 in [place] at which time he was told he had diverticulosis and Crohn's disease. 4. No treatment for Crohn's disease except steroids and hospital admission. 5. In 2013, he had a gastric emptying scan that showed marked delay with a T-1/2 of 315 minutes with a history of uncontrolled diabetes. 6. He had a borderline positive anti saccharomyces cerevisiae antibody in 2014. IMAGING STUDIES: CT in 04/2016 showed mesenteric panniculitis, mild prominent mesenteric retroperitoneal lymph nodes, diverticulosis, and no evidence of Crohn's disease. FAMILY MEDICAL HISTORY: Denies colon cancer. SOCIAL HISTORY: He uses marijuana, but otherwise denies tobacco or IV drug abuse. HOME MEDICATIONS: Include: 1. Clonazepam. 2. Adderall. 3. Gabapentin. 4. Insulin. 5. Metformin. 6. Oxycodone. ALLERGIES: 1. FENTANYL. 2. HALOPERIDOL. 3. LITHIUM. 4. KETOROLAC. REVIEW OF SYSTEMS: A 13-point review of systems was done. It is positive as per HPI and otherwise negative. PHYSICAL EXAMINATION: VITAL SIGNS: Temperature not done, blood pressure is 108/67, heart rate 106. GENERAL: He is a well-developed, well-nourished male in no apparent distress. HEENT: His oropharynx is clear. CARDIOVASCULAR: S1, S2. LUNGS: Clear. ABDOMEN: Normoactive bowel sounds, soft, diffusely tender to palpation. EXTREMITIES: No edema. SKIN: He does have tattoo on his chest and arms. LABORATORY DATA: White blood cell count of 5.2 with hemoglobin of 11.5 and MCV at 79, platelets are 290. Chemistries show an elevated alkaline phosphatase of 134, low lipase at 68. CT of the abdomen and pelvis shows some atelectasis, but occasional diverticula on the large bowel, but no evidence of inflammation. ASSESSMENT AND PLAN: 1. Hematemesis: Concern for gastritis versus peptic ulcer with his admitted increased use of ibuprofen. I will start him on the Protonix drip and hold any ibuprofen. I have reviewed his laboratory values, and his hemoglobin was 12.2 on 06/15/2016. Prior to that, he was in the 11 range. It does not appear that he has had a precipitous drop. We will continue to monitor this in-house. 2. Crohn's disease: He reports that he has not been on any medication in the last 6 months. He has received IV steroids during prior in-house admissions. I would favor he has an outpatient process improvement consultant so that his disease may be monitored closely. He likely needs a colonoscopy at some point; this can be done as an outpatient. Thank you for allowing me and Dr. Boswell to participate in the care of this patient. LIZY HENRY MD DR: ELMIRA/bassam JOB#: [id number] / [id number] WOLFGANG Watson MD, MICHAEL MD
[2016-07-06 06:28] LABS: BASO % 1 % (0-3); EOS % 4 % (0-3); HEMATOCRIT 34.2 % (39.0-53.0); HEMOGLOBIN 11.1 g/dL (13.0-17.5); LYMPH # 1.5 x10^3/uL (1.0-4.8); LYMPH % 37 % (24-48); MEAN CORPUSCULAR HEMOGLOBIN 26 pg (25-35); MEAN CORPUSCULAR HGB CONC 32 g/dL (31-37); MEAN CORPUSCULAR VOLUME 79 fL (79-100); MONO % 8 % (0-9); NEUT % 51 % (31-73); PLATELET COUNT 304 x10^3/uL (140-400); RED BLOOD COUNT 4.35 x10^6/uL (4.30-5.70); RED CELL DISTRIBUTION WIDTH 15.6 % (11.5-14.5); WHITE BLOOD COUNT 4.2 x10^3/uL (4.0-11.0)
[2016-07-06 06:38] LABS: CALCIUM 8.8 mg/dL (8.5-10.1); CREATININE 0.6 mg/dL (0.7-1.3); GFR 153.3; POTASSIUM 4.7 mmol/L (3.5-5.1)
[2016-07-06 07:00] VITALS: BP 123/84
[2016-07-06] MEDS: INSULIN ASPART 300 UNITS/3 ML INSULN.PEN SQ SCH ×3 (08:00→17:00)
[2016-07-06] MEDS: PANTOPRAZOLE IV PUSH 40 MG VIAL. IVP SCH (08:20)
[2016-07-06] MEDS: CLONAZEPAM 1 MG TABLET PO SCH ×3 (09:00→20:50)
[2016-07-06] MEDS: GABAPENTIN 300 MG CAPSULE. PO SCH ×3 (09:00→20:45)
--- NOTE | 2016-07-06 09:51 | PDOC ---
Subjective: Subjective: Abd pain - can't really describe. No recurrent hematemesis. Objective: Objective: Per RN - two juices about 1 hour ago, non-compliant w/ NPO. Vital Signs: Vital Signs Date Time Temp Pulse Resp B/P Pulse Ox O2 Delivery O2 Flow Rate FiO2 07/06/16 08:50 Room Air 07/06/16 07:00 97.6 97 20 123/84 98 97.6 Labs: Laboratory Tests Test 07/05/16 13:08 07/05/16 17:23 07/05/16 23:21 07/06/16 05:20 White Blood Count 5.2x10^3/uL 4.2x10^3/uL Red Blood Count 4.56x10^6/uL 4.35x10^6/uL Hemoglobin 11.5g/dL 11.1g/dL Hematocrit 36.1% 34.2% Mean Corpuscular Volume 79fL 79fL Mean Corpuscular Hemoglobin 25pg 26pg Mean Corpuscular Hemoglobin Concent 32g/dL 32g/dL Red Cell Distribution Width 15.4% 15.6% Platelet Count 290x10^3/uL 304x10^3/uL Neutrophils (%) (Auto) 68% 51% Lymphocytes (%) (Auto) 22% 37% Monocytes (%) (Auto) 7% 8% Eosinophils (%) (Auto) 2% 4% Basophils (%) (Auto) 1% 1% Neutrophils # (Auto) 3.5x10^3uL 2.1x10^3uL Lymphocytes # (Auto) 1.1x10^3/uL 1.5x10^3/uL Monocytes # (Auto) 0.4x10^3/uL 0.3x10^3/uL Eosinophils # (Auto) 0.1x10^3/uL 0.2x10^3/uL Basophils # (Auto) 0.0x10^3/uL 0.0x10^3/uL Sodium Level 138mmol/L 136mmol/L Potassium Level 4.1mmol/L 4.7mmol/L Chloride Level 100mmol/L 102mmol/L Carbon Dioxide Level 28mmol/L 27mmol/L Anion Gap 10 7 Blood Urea Nitrogen 12mg/dL 8mg/dL Creatinine 0.8mg/dL 0.6mg/dL Estimated GFR (Cockcroft-Gault) 110.0 153.3 BUN/Creatinine Ratio 15 Glucose Level 125mg/dL 268mg/dL Calcium Level 9.4mg/dL 8.8mg/dL Total Bilirubin 0.2mg/dL Aspartate Amino Transf (AST/SGOT) 15U/L Alanine Aminotransferase (ALT/SGPT) 25U/L Alkaline Phosphatase 134U/L Total Protein 7.9g/dL Albumin 3.3g/dL Albumin/Globulin Ratio 0.7 Lipase 68U/L Glucose (Fingerstick) 138mg/dL 257mg/dL Test 07/06/16 07:05 Glucose (Fingerstick) 199mg/dL PE: GEN: NAD LUNGS: CTAB HEART: RRR ABD: NABS, S/ND/NT NEURO/PSYCH: A & O 3 A/P: Hematemesis, abd pain -- NPO orders but pt drinking juice. Agrees to EGD this afternoon, also agrees to strict NPO now. D/w Dr. Boswell, d/w GI lab. TURNER WEBSTER Jul 06, 2016 09:51
[2016-07-06] MEDS ORDERED: IV RINGERS,LACTATED 1000ML 1,000 ML IV SCH (10:45)
[2016-07-06 11:00] VITALS: BP 116/81
[2016-07-06] MEDS ORDERED: PROPOFOL 40 ML IV ONE (13:43)
[2016-07-06] MEDS ORDERED: LIDOCAINE 2% PF Vial for OR 5 ML VIAL. ONE (13:43)
[2016-07-06] MEDS: IV RINGERS,LACTATED 1000ML 1,000 ML IV SCH (13:43)
[2016-07-06] MEDS ORDERED: LIDOCAINE 1% 1 ML SYRINGE. ID PRN (13:45)
[2016-07-06] MEDS ORDERED: MIDAZOLAM HCL 2 MG/2 ML VIAL. IV PRN (13:45)
[2016-07-06] MEDS ORDERED: FENTANYL PF 100 MCG/2 ML VIAL. IV PRN ×2 (13:45)
--- NOTE | 2016-07-06 14:31 | PDOC4 ---
PROCEDURE Procedure EGD/biopsies Indication: coffee-ground emesis Meds: per anesthesia Findings; E-irregular Z-line c/w mild, <grade I reflux. No MW, etc. G-small amount of retained fluid/solids from last night probably. Majority of stomach seen well and no lesions. Biopsies from antrum re: H.pylori. D-Normal to distal second portion. Pritesh. well. Imp: Mild reflux/retained food c/w known gastroparesis. Rec: clears prep/colon tomorrow re: really has IBD? Continue/start PPI; give prokinetic at least for prep. Thanks. RENUKA MOLINA MD Jul 06, 2016 14:31
[2016-07-06 15:00] VITALS: BP 124/80
--- NOTE | 2016-07-06 16:38 | PDOC ---
PROGRESS NOTES Chief Complaint Chief Complaint hematemesis Abd pain ASSESSMENT AND PLAN: 1. Hematemesis: prob NSAIDs induced. appreciate GI service input: EGD today 2. Crohn's: hx of Kenisha use, steroids for flares 3. Gastroparesis: most likely 2/2 DM. reglan bid 4. DM: poorly controlled with holding of home lantus/reg insulin. restart, lower dose 5. Shoulder pain: chronic. gets refills with admit, missed pain clinic eval x2 2/2 admissions here. narcotic dependent. IV/PO dilaudid Vitals Vitals Vital Signs Date Time Temp Pulse Resp B/P Pulse Ox O2 Delivery O2 Flow Rate FiO2 07/06/16 15:18 Room Air 07/06/16 15:00 97.3 98 20 124/80 99 97.3 07/06/16 14:34 2 Physical Exam General: Alert, Oriented X3, Cooperative, No acute distress Heart: Regular rate Lungs: Clear Abdomen: Normal bowel sounds, Soft, No tenderness Extremities: No clubbing Skin: No rashes Labs LABS Laboratory Tests Test 07/05/16 17:23 07/05/16 23:21 07/06/16 05:20 07/06/16 07:05 Glucose (Fingerstick) 138mg/dL (70-99) 257mg/dL (70-99) 199mg/dL (70-99) White Blood Count 4.2x10^3/uL (4.0-11.0) Red Blood Count 4.35x10^6/uL (4.30-5.70) Hemoglobin 11.1g/dL (13.0-17.5) Hematocrit 34.2% (39.0-53.0) Mean Corpuscular Volume 79fL (79-100) Mean Corpuscular Hemoglobin 26pg (25-35) Mean Corpuscular Hemoglobin Concent 32g/dL (31-37) Red Cell Distribution Width 15.6% (11.5-14.5) Platelet Count 304x10^3/uL (140-400) Neutrophils (%) (Auto) 51% (31-73) Lymphocytes (%) (Auto) 37% (24-48) Monocytes (%) (Auto) 8% (0-9) Eosinophils (%) (Auto) 4% (0-3) Basophils (%) (Auto) 1% (0-3) Neutrophils # (Auto) 2.1x10^3uL (1.8-7.7) Lymphocytes # (Auto) 1.5x10^3/uL (1.0-4.8) Monocytes # (Auto) 0.3x10^3/uL (0.0-1.1) Eosinophils # (Auto) 0.2x10^3/uL (0.0-0.7) Basophils # (Auto) 0.0x10^3/uL (0.0-0.2) Sodium Level 136mmol/L (136-145) Potassium Level 4.7mmol/L (3.5-5.1) Chloride Level 102mmol/L (98-107) Carbon Dioxide Level 27mmol/L (21-32) Anion Gap 7 (6-14) Blood Urea Nitrogen 8mg/dL (8-26) Creatinine 0.6mg/dL (0.7-1.3) Estimated GFR (Cockcroft-Gault) 153.3 Glucose Level 268mg/dL (70-99) Calcium Level 8.8mg/dL (8.5-10.1) Test 07/06/16 12:25 Glucose (Fingerstick) 229mg/dL (70-99) Review of Systems Review of Systems "can you come back later? I'm trying to sleep here" Comment Review of Relevant I have reviewed the following items shante (where applicable) has been applied. Labs Laboratory Tests Test 07/05/16 13:08 07/05/16 17:23 07/05/16 23:21 07/06/16 05:20 White Blood Count 5.2x10^3/uL (4.0-11.0) 4.2x10^3/uL (4.0-11.0) Red Blood Count 4.56x10^6/uL (4.30-5.70) 4.35x10^6/uL (4.30-5.70) Hemoglobin 11.5g/dL (13.0-17.5) 11.1g/dL (13.0-17.5) Hematocrit 36.1% (39.0-53.0) 34.2% (39.0-53.0) Mean Corpuscular Volume 79fL (79-100) 79fL (79-100) Mean Corpuscular Hemoglobin 25pg (25-35) 26pg (25-35) Mean Corpuscular Hemoglobin Concent 32g/dL (31-37) 32g/dL (31-37) Red Cell Distribution Width 15.4% (11.5-14.5) 15.6% (11.5-14.5) Platelet Count 290x10^3/uL (140-400) 304x10^3/uL (140-400) Neutrophils (%) (Auto) 68% (31-73) 51% (31-73) Lymphocytes (%) (Auto) 22% (24-48) 37% (24-48) Monocytes (%) (Auto) 7% (0-9) 8% (0-9) Eosinophils (%) (Auto) 2% (0-3) 4% (0-3) Basophils (%) (Auto) 1% (0-3) 1% (0-3) Neutrophils # (Auto) 3.5x10^3uL (1.8-7.7) 2.1x10^3uL (1.8-7.7) Lymphocytes # (Auto) 1.1x10^3/uL (1.0-4.8) 1.5x10^3/uL (1.0-4.8) Monocytes # (Auto) 0.4x10^3/uL (0.0-1.1) 0.3x10^3/uL (0.0-1.1) Eosinophils # (Auto) 0.1x10^3/uL (0.0-0.7) 0.2x10^3/uL (0.0-0.7) Basophils # (Auto) 0.0x10^3/uL (0.0-0.2) 0.0x10^3/uL (0.0-0.2) Sodium Level 138mmol/L (136-145) 136mmol/L (136-145) Potassium Level 4.1mmol/L (3.5-5.1) 4.7mmol/L (3.5-5.1) Chloride Level 100mmol/L (98-107) 102mmol/L (98-107) Carbon Dioxide Level 28mmol/L (21-32) 27mmol/L (21-32) Anion Gap 10 (6-14) 7 (6-14) Blood Urea Nitrogen 12mg/dL (8-26) 8mg/dL (8-26) Creatinine 0.8mg/dL (0.7-1.3) 0.6mg/dL (0.7-1.3) Estimated GFR (Cockcroft-Gault) 110.0 153.3 BUN/Creatinine Ratio 15 (6-20) Glucose Level 125mg/dL (70-99) 268mg/dL (70-99) Calcium Level 9.4mg/dL (8.5-10.1) 8.8mg/dL (8.5-10.1) Total Bilirubin 0.2mg/dL (0.2-1.0) Aspartate Amino Transf (AST/SGOT) 15U/L (15-37) Alanine Aminotransferase (ALT/SGPT) 25U/L (16-63) Alkaline Phosphatase 134U/L (46-116) Total Protein 7.9g/dL (6.4-8.2) Albumin 3.3g/dL (3.4-5.0) Albumin/Globulin Ratio 0.7 (1.0-1.7) Lipase 68U/L (73-393) Glucose (Fingerstick) 138mg/dL (70-99) 257mg/dL (70-99) Test 07/06/16 07:05 07/06/16 12:25 Glucose (Fingerstick) 199mg/dL (70-99) 229mg/dL (70-99) Laboratory Tests Test 07/05/16 17:23 07/05/16 23:21 07/06/16 05:20 07/06/16 07:05 Glucose (Fingerstick) 138mg/dL (70-99) 257mg/dL (70-99) 199mg/dL (70-99) White Blood Count 4.2x10^3/uL (4.0-11.0) Red Blood Count 4.35x10^6/uL (4.30-5.70) Hemoglobin 11.1g/dL (13.0-17.5) Hematocrit 34.2% (39.0-53.0) Mean Corpuscular Volume 79fL (79-100) Mean Corpuscular Hemoglobin 26pg (25-35) Mean Corpuscular Hemoglobin Concent 32g/dL (31-37) Red Cell Distribution Width 15.6% (11.5-14.5) Platelet Count 304x10^3/uL (140-400) Neutrophils (%) (Auto) 51% (31-73) Lymphocytes (%) (Auto) 37% (24-48) Monocytes (%) (Auto) 8% (0-9) Eosinophils (%) (Auto) 4% (0-3) Basophils (%) (Auto) 1% (0-3) Neutrophils # (Auto) 2.1x10^3uL (1.8-7.7) Lymphocytes # (Auto) 1.5x10^3/uL (1.0-4.8) Monocytes # (Auto) 0.3x10^3/uL (0.0-1.1) Eosinophils # (Auto) 0.2x10^3/uL (0.0-0.7) Basophils # (Auto) 0.0x10^3/uL (0.0-0.2) Sodium Level 136mmol/L (136-145) Potassium Level 4.7mmol/L (3.5-5.1) Chloride Level 102mmol/L (98-107) Carbon Dioxide Level 27mmol/L (21-32) Anion Gap 7 (6-14) Blood Urea Nitrogen 8mg/dL (8-26) Creatinine 0.6mg/dL (0.7-1.3) Estimated GFR (Cockcroft-Gault) 153.3 Glucose Level 268mg/dL (70-99) Calcium Level 8.8mg/dL (8.5-10.1) Test 07/06/16 12:25 Glucose (Fingerstick) 229mg/dL (70-99) Medications Current Medications Hydromorphone HCl (Dilaudid) 1 mg 1X ONCE IV Last administered on 07/05/16 12 :52; Start 07/05/16 at 12:15; Stop 07/05/16 at 12:20; Status DC Ondansetron HCl 4 mg 4 mg 1X ONCE IV Last administered on 07/05/16 12:46; Start 07/05/16 at 12:15; Stop 07/05/16 at 12:20; Status DC Sodium Chloride (Iv Sodium Chloride 0.9% 1000ml Bag) 1,000 ml @ 1,000 mls/hr 1X ONCE IV Last administered on 07/05/16 12:38; Start 07/05/16 at 12:15; Stop 07/05/16 at 13:14; Status DC Pantoprazole Sodium 80 mg 80 mg 1X ONCE IVP Last administered on 07/05/16 12: 48; Start 07/05/16 at 12:15; Stop 07/05/16 at 12:20; Status DC Pantoprazole Sodium/Sodium Chloride (Protonix Iv/Iv Sodium Chloride 0.9% 100ml) 100 ml @ 10 mls/hr 1X ONCE IV Last administered on 07/05/16 12:52; Start at 12:15; Stop 07/05/16 at 22:14; Status DC Iohexol (Omnipaque 300 Mg/ml) 75 ml 1X ONCE IV ; Start 07/05/16 at 12:30; Stop 07/05/16 at 12:31; Status DC Ondansetron HCl (Zofran) 4 mg PRN Q8HRS PRN IV NAUSEA/VOMITING; Start 07/05/16 at 13:30; Stop 07/05/16 at 14:07; Status DC Fentanyl Citrate 50 mcg 50 mcg PRN Q2HR PRN IV PAIN; Start 07/05/16 at 13:30; Stop 07/06/16 at 13:29; Status UNV Sodium Chloride (Iv Sodium Chloride 0.9% 1000ml Bag) 1,000 ml @ 125 mls/hr Q8H IV Last administered on 07/06/16 03:50; Start 07/05/16 at 13:19; Stop at 13:18; Status DC Hydromorphone HCl (Dilaudid) 1 mg 1X ONCE IV Last administered on 07/05/16 13 :45; Start 07/05/16 at 13:30; Stop 07/05/16 at 13:31; Status DC Hydromorphone HCl (Dilaudid) 1 mg PRN Q2HR PRN IV PAIN SEVERE Last administered on 07/06/16 15:18; Start 07/05/16 at 13:30 Ondansetron HCl (Zofran) 4 mg PRN Q6HRS PRN IV NAUSEA/VOMITING; Start 07/05/16 at 14:04 Acetaminophen (Tylenol) 500 mg PRN Q6HRS PRN PO MILD PAIN / TEMP; Start at 14:15 Pantoprazole Sodium (Protonix Vial) 40 mg BID IVP Last administered on 08:20; Start 07/05/16 at 21:00 Clonazepam (Klonopin) 1 mg TID PO Last administered on 07/06/16 15:19; Start 07/05/16 at 21:00 Non-Formulary Medication 30 mg BID PO ADHD; Start 07/05/16 at 21:00; Status UNV Gabapentin (Neurontin) 600 mg TID PO Last administered on 07/06/16 15:19; Start 07/05/16 at 21:00 Oxycodone HCl (Roxicodone) 10 mg PRN Q4HRS PRN PO PAIN SEVERE; Start 07/05/16 at 14:30 Insulin Aspart (Novolog) 0-7 UNITS TIDWMEALS SQ ; Start 07/05/16 at 17:00 Dextrose 12.5 gm PRN Q15MIN PRN IV SEE COMMENTS; Start 07/05/16 at 14:15 Nicotine Polacrilex 1 each 1 each PRN Q1HR PRN BC SMOKING CESSATION Last administered on 07/06/16 15:19; Start 07/05/16 at 22:30 Lactated Ringer's 1,000 ml @ 50 mls/hr Q20H IV Last administered on 07/06/16 13:45; Start 07/06/16 at 10:45; Stop 07/06/16 at 10:46; Status DC Propofol (Diprivan) 40 ml @ As Directed STK-MED ONCE IV ; Start 07/06/16 at 13: 43; Stop 07/06/16 at 13:44; Status DC Lidocaine HCl (Lidocaine Pf 2% Vial) 5 ml STK-MED ONCE .ROUTE ; Start 07/06/16 at 13:43; Stop 07/06/16 at 13:44; Status DC Midazolam HCl (Versed) 2 mg PRN 1X PRN IV PRIOR TO PROCEDURE; Start 07/06/16 at 13:45; Stop 07/07/16 at 13:44 Fentanyl Citrate (Fentanyl 2ml Vial) 25 mcg PRN Q5MIN PRN IV X 2 DOSES FOR PAIN ; Start 07/06/16 at 13:45; Stop 07/06/16 at 13:51; Status DC Fentanyl Citrate 50 mcg 50 mcg PRN Q5MIN PRN IV X 2 DOSES FOR PAIN; Start 07/06 at 13:45; Stop 07/06/16 at 13:51; Status DC Lactated Ringer's (Iv Lactated Ringers) 1,000 ml @ 125 mls/hr Q8H IV ; Start at 13:43; Stop 07/07/16 at 01:42 Lidocaine HCl 2 ml 1X PRN PRN ID IV START; Start 07/06/16 at 13:45; Stop at 13:44 Metoclopramide HCl (Reglan) 5 mg Q6HRS IV ; Start 07/06/16 at 18:00 Ondansetron HCl (Zofran) 4 mg PRN Q6HRS PRN IV Nausea; Start 07/07/16 at 07:00 ; Stop 07/08/16 at 06:59 Morphine Sulfate 1 mg 1 mg PRN Q10MIN PRN IV SEVERE PAIN; Start 07/07/16 at 07: 00; Stop 07/08/16 at 06:59 Lactated Ringer's (Iv Lactated Ringers) 1,000 ml @ 0 mls/hr Q0M IV ; Start at 07:00; Stop 07/07/16 at 18:59 Lidocaine HCl 2 ml 1X PRN PRN ID IV START; Start 07/07/16 at 07:00; Stop at 06:59 Hydromorphone HCl (Dilaudid) 0.5 mg PRN Q10MIN PRN IV SEVERE PAIN, Second choice; Start 07/07/16 at 07:00; Stop 07/08/16 at 06:59 Active Scripts Active Oxycodone Hcl 10 Mg Tablet 1 Tab PO Q4-6HRS PRN Clonazepam 1 Mg Tablet 1 Tab PO TID Reported Novolog Flexpen (Insulin Aspart) 100 Unit/1 Ml Insuln.pen 20 Unit SQ TIDAC Gabapentin 600 Mg Tablet 600 Mg PO TID Lantus Solostar (Insulin Glargine,Hum.rec.anlog) 100 Unit/1 Ml Insuln.pen 80 Unit SQ QHS Adderall 30 Mg Tablet (Dextroamphetamine/Amphetamine) 30 Mg Tablet 30 Mg PO BID Metformin Hcl 1,000 Mg Tablet 1,000 Mg PO BID Vitals/I & O Vital Sign - Last 24 Hours 07/05/16 07/05/16 07/05/16 07/05/16 17:10 19:00 19:45 22:14 Temp 97.9 97.9 Pulse 104 Resp 20 18 16 16 B/P 122/80 Pulse Ox 93 100 93 93 O2 Delivery Room Air Room Air Room Air 07/05/16 07/06/16 07/06/16 07/06/16 23:00 00:33 02:46 05:24 Temp 97.9 97.9 Pulse 101 Resp 16 15 16 18 B/P 122/85 Pulse Ox 100 100 100 100 O2 Delivery Room Air Room Air Room Air 07/06/16 07/06/16 07/06/16 07/06/16 05:54 07:00 08:00 08:19 Temp 97.6 97.6 Pulse 97 Resp 17 20 B/P 123/84 Pulse Ox 100 98 O2 Delivery Room Air Room Air Room Air 07/06/16 07/06/16 07/06/16 07/06/16 11:00 12:23 13:00 13:47 Temp 97.5 97.5 Pulse 101 Resp 20 B/P 116/81 Pulse Ox 96 O2 Delivery Room Air Room Air Room Air Room Air 07/06/16 07/06/16 07/06/16 07/06/16 14:26 14:34 14:47 15:00 Temp 97.6 97.6 97.6 97.3 97.6 97.6 97.6 97.3 Pulse 89 91 91 98 Resp 20 20 20 20 B/P 99/56 107/58 128/65 124/80 Pulse Ox 100 100 100 99 O2 Delivery Nasal Cannula Nasal Cannula Room Air Room Air O2 Flow Rate 2 2 07/06/16 15:18 O2 Delivery Room Air Intake and Output 07/05/16 07/05/16 07/06/16 15:00 23:00 07:00 Intake Total 0 ml Output Total 1050 ml Balance -1050 ml JALEN HIGGINS MD Jul 06, 2016 16:37
[2016-07-06] MEDS ORDERED: MAGNESIUM CITRATE 296 ML SOLUTION. PO ONE (17:00)
[2016-07-06] MEDS ORDERED: POLYETHYLENE GLYCOL 3350 238 GM POWDER PO ONE (17:00)
[2016-07-06] MEDS ORDERED: BISACODYL 5 MG TABLET.DR. PO ONE ×2 (17:00→23:00)
[2016-07-06] MEDS: METOCLOPRAMIDE HCL 10 MG/2 ML VIAL. IV SCH (17:28)
[2016-07-06] MEDS: HYDROMORPHONE 2 MG TABLET. PO PRN ×2 (17:28→21:34)
[2016-07-06 19:44] VITALS: BP 114/79
[2016-07-06] MEDS ORDERED: INSULIN DETEMIR 300 UNITS/3 ML INSULN.PEN. SQ SCH ×2 (21:00)
[2016-07-06] MEDS ORDERED: INSULIN REGULAR 100 UNIT/ML 10ML VIAL. IV ONE (22:45)
[2016-07-06] MEDS ORDERED: INSULIN ASPART 300 UNITS/3 ML INSULN.PEN SQ ONE (23:00)
[2016-07-07] MEDS: IV RINGERS,LACTATED 1000ML 1,000 ML IV SCH (00:12)
[2016-07-07] MEDS: METOCLOPRAMIDE HCL 10 MG/2 ML VIAL. IV SCH ×3 (00:12→12:00)
[2016-07-07 02:56] VITALS: BP 140/69
[2016-07-07] MEDS: NICOTINE POLACRILEX 2MG GUM PACKAGE of 12. BC PRN ×5 (03:25→15:46)
[2016-07-07] MEDS: HYDROMORPHONE 2 MG TABLET. PO PRN ×3 (03:25→14:16)
[2016-07-07 07:00] VITALS: BP 111/73
[2016-07-07] MEDS ORDERED: IV RINGERS,LACTATED 1000ML 1,000 ML IV SCH (07:00)
[2016-07-07] MEDS ORDERED: ONDANSETRON PF 4 MG/2 ML VIAL. IV PRN (07:00)
[2016-07-07] MEDS ORDERED: HYDROMORPHONE 2 MG/ML VIAL. IV PRN (07:00)
[2016-07-07] MEDS ORDERED: LIDOCAINE 1% 1 ML SYRINGE. ID PRN (07:00)
[2016-07-07] MEDS ORDERED: MORPHINE SULFATE 2 MG/ML DISP.SYRIN. IV PRN (07:00)
[2016-07-07] MEDS ORDERED: PANTOPRAZOLE 40 MG TABLET. PO SCH (07:30)
[2016-07-07] MEDS: INSULIN ASPART 300 UNITS/3 ML INSULN.PEN SQ SCH ×3 (08:00→14:30)
[2016-07-07] MEDS ORDERED: BISACODYL 5 MG TABLET.DR. PO ONE (08:15)
[2016-07-07] MEDS ORDERED: MAGNESIUM CITRATE 296 ML SOLUTION. PO ONE (08:15)
--- NOTE | 2016-07-07 08:22 | PDOC ---
PROGRESS NOTES Chief Complaint Chief Complaint hematemesis Abd pain ASSESSMENT AND PLAN: 1. Hematemesis: prob NSAIDs induced. appreciate GI service input: s/p EGD and colonoscopy today 2. Crohn's: hx of Humira use, steroids for flares 3. Gastroparesis: most likely 2/2 DM. Reglan bid 4. DM: poorly controlled with holding of home lantus/reg insulin. restart, lower dose 5. Shoulder pain: chronic. gets refills with admit, missed pain clinic eval x2 2/2 admissions here. narcotic dependent. Vitals Vitals Vital Signs Date Time Temp Pulse Resp B/P Pulse Ox O2 Delivery O2 Flow Rate FiO2 07/07/16 07:00 97.7 98 18 111/73 95 Room Air 97.7 07/06/16 14:34 2 Physical Exam General: Alert, Oriented X3, Cooperative, No acute distress Heart: Regular rate, Normal S1, Normal S2 Lungs: Clear Abdomen: Normal bowel sounds, Soft, No tenderness Extremities: No clubbing Skin: No rashes Labs LABS Laboratory Tests Test 07/06/16 12:25 07/06/16 16:55 07/06/16 21:12 Glucose (Fingerstick) 229mg/dL (70-99) 231mg/dL (70-99) 474mg/dL (70-99) Assessment and Plan Assessmemt and Plan Problems Medical Problems: (1) Abdominal pain Status: Acute (2) Coffee ground emesis Status: Acute Problems: Comment Review of Relevant I have reviewed the following items shante (where applicable) has been applied. Labs Laboratory Tests Test 07/05/16 13:08 07/05/16 17:23 07/05/16 23:21 07/06/16 05:20 White Blood Count 5.2x10^3/uL (4.0-11.0) 4.2x10^3/uL (4.0-11.0) Red Blood Count 4.56x10^6/uL (4.30-5.70) 4.35x10^6/uL (4.30-5.70) Hemoglobin 11.5g/dL (13.0-17.5) 11.1g/dL (13.0-17.5) Hematocrit 36.1% (39.0-53.0) 34.2% (39.0-53.0) Mean Corpuscular Volume 79fL (79-100) 79fL (79-100) Mean Corpuscular Hemoglobin 25pg (25-35) 26pg (25-35) Mean Corpuscular Hemoglobin Concent 32g/dL (31-37) 32g/dL (31-37) Red Cell Distribution Width 15.4% (11.5-14.5) 15.6% (11.5-14.5) Platelet Count 290x10^3/uL (140-400) 304x10^3/uL (140-400) Neutrophils (%) (Auto) 68% (31-73) 51% (31-73) Lymphocytes (%) (Auto) 22% (24-48) 37% (24-48) Monocytes (%) (Auto) 7% (0-9) 8% (0-9) Eosinophils (%) (Auto) 2% (0-3) 4% (0-3) Basophils (%) (Auto) 1% (0-3) 1% (0-3) Neutrophils # (Auto) 3.5x10^3uL (1.8-7.7) 2.1x10^3uL (1.8-7.7) Lymphocytes # (Auto) 1.1x10^3/uL (1.0-4.8) 1.5x10^3/uL (1.0-4.8) Monocytes # (Auto) 0.4x10^3/uL (0.0-1.1) 0.3x10^3/uL (0.0-1.1) Eosinophils # (Auto) 0.1x10^3/uL (0.0-0.7) 0.2x10^3/uL (0.0-0.7) Basophils # (Auto) 0.0x10^3/uL (0.0-0.2) 0.0x10^3/uL (0.0-0.2) Sodium Level 138mmol/L (136-145) 136mmol/L (136-145) Potassium Level 4.1mmol/L (3.5-5.1) 4.7mmol/L (3.5-5.1) Chloride Level 100mmol/L (98-107) 102mmol/L (98-107) Carbon Dioxide Level 28mmol/L (21-32) 27mmol/L (21-32) Anion Gap 10 (6-14) 7 (6-14) Blood Urea Nitrogen 12mg/dL (8-26) 8mg/dL (8-26) Creatinine 0.8mg/dL (0.7-1.3) 0.6mg/dL (0.7-1.3) Estimated GFR (Cockcroft-Gault) 110.0 153.3 BUN/Creatinine Ratio 15 (6-20) Glucose Level 125mg/dL (70-99) 268mg/dL (70-99) Calcium Level 9.4mg/dL (8.5-10.1) 8.8mg/dL (8.5-10.1) Total Bilirubin 0.2mg/dL (0.2-1.0) Aspartate Amino Transf (AST/SGOT) 15U/L (15-37) Alanine Aminotransferase (ALT/SGPT) 25U/L (16-63) Alkaline Phosphatase 134U/L (46-116) Total Protein 7.9g/dL (6.4-8.2) Albumin 3.3g/dL (3.4-5.0) Albumin/Globulin Ratio 0.7 (1.0-1.7) Lipase 68U/L (73-393) Glucose (Fingerstick) 138mg/dL (70-99) 257mg/dL (70-99) Test 07/06/16 07:05 07/06/16 12:25 07/06/16 16:55 07/06/16 21:12 Glucose (Fingerstick) 199mg/dL (70-99) 229mg/dL (70-99) 231mg/dL (70-99) 474mg/dL (70-99) Laboratory Tests Test 07/06/16 12:25 07/06/16 16:55 07/06/16 21:12 Glucose (Fingerstick) 229mg/dL (70-99) 231mg/dL (70-99) 474mg/dL (70-99) Medications Current Medications Hydromorphone HCl (Dilaudid) 1 mg 1X ONCE IV Last administered on 07/05/16t 12 :52; Start 07/05/16 at 12:15; Stop 07/05/16 at 12:20; Status DC Ondansetron HCl 4 mg 4 mg 1X ONCE IV Last administered on 07/05/16 12:46; Start 07/05/16 at 12:15; Stop 07/05/16 at 12:20; Status DC Sodium Chloride (Iv Sodium Chloride 0.9% 1000ml Bag) 1,000 ml @ 1,000 mls/hr 1X ONCE IV Last administered on 07/05/16 12:38; Start 07/05/16 at 12:15; Stop 07/05/16 at 13:14; Status DC Pantoprazole Sodium 80 mg 80 mg 1X ONCE IVP Last administered on 07/05/16 12: 48; Start 07/05/16 at 12:15; Stop 07/05/16 at 12:20; Status DC Pantoprazole Sodium/Sodium Chloride (Protonix Iv/Iv Sodium Chloride 0.9% 100ml) 100 ml @ 10 mls/hr 1X ONCE IV Last administered on 07/05/16 12:52; Start at 12:15; Stop 07/05/16 at 22:14; Status DC Iohexol (Omnipaque 300 Mg/ml) 75 ml 1X ONCE IV ; Start 07/05/16 at 12:30; Stop 07/05/16 at 12:31; Status DC Ondansetron HCl (Zofran) 4 mg PRN Q8HRS PRN IV NAUSEA/VOMITING; Start 07/05/16 at 13:30; Stop 07/05/16 at 14:07; Status DC Fentanyl Citrate 50 mcg 50 mcg PRN Q2HR PRN IV PAIN; Start 07/05/16 at 13:30; Stop 07/06/16 at 13:29; Status UNV Sodium Chloride (Iv Sodium Chloride 0.9% 1000ml Bag) 1,000 ml @ 125 mls/hr Q8H IV Last administered on 07/06/16 03:50; Start 07/05/16 at 13:19; Stop at 13:18; Status DC Hydromorphone HCl (Dilaudid) 1 mg 1X ONCE IV Last administered on 07/05/16 13 :45; Start 07/05/16 at 13:30; Stop 07/05/16 at 13:31; Status DC Hydromorphone HCl (Dilaudid) 1 mg PRN Q2HR PRN IV PAIN SEVERE Last administered on 07/06/16 15:18; Start 07/05/16 at 13:30; Stop 07/06/16 at 16:37 ; Status DC Ondansetron HCl (Zofran) 4 mg PRN Q6HRS PRN IV NAUSEA/VOMITING; Start 07/05/16 at 14:04 Acetaminophen (Tylenol) 500 mg PRN Q6HRS PRN PO MILD PAIN / TEMP; Start at 14:15 Pantoprazole Sodium (Protonix Vial) 40 mg BID IVP Last administered on 08:20; Start 07/05/16 at 21:00; Stop 07/06/16 at 18:15; Status DC Clonazepam (Klonopin) 1 mg TID PO Last administered on 07/06/16 20:50; Start 07/05/16 at 21:00 Non-Formulary Medication 30 mg BID PO ADHD; Start 07/05/16 at 21:00; Status UNV Gabapentin (Neurontin) 600 mg TID PO Last administered on 07/06/16 20:45; Start 07/05/16 at 21:00 Oxycodone HCl (Roxicodone) 10 mg PRN Q4HRS PRN PO PAIN SEVERE; Start 07/05/16 at 14:30; Stop 07/06/16 at 16:37; Status DC Insulin Aspart (Novolog) 0-7 UNITS TIDWMEALS SQ ; Start 07/05/16 at 17:00 Dextrose 12.5 gm PRN Q15MIN PRN IV SEE COMMENTS; Start 07/05/16 at 14:15 Nicotine Polacrilex 1 each 1 each PRN Q1HR PRN BC SMOKING CESSATION Last administered on 07/07/16 06:35; Start 07/05/16 at 22:30 Lactated Ringer's 1,000 ml @ 50 mls/hr Q20H IV Last administered on 07/06/16 13:45; Start 07/06/16 at 10:45; Stop 07/06/16 at 10:46; Status DC Propofol (Diprivan) 40 ml @ As Directed STK-MED ONCE IV ; Start 07/06/16 at 13: 43; Stop 07/06/16 at 13:44; Status DC Lidocaine HCl (Lidocaine Pf 2% Vial) 5 ml Tracsis-MED ONCE .ROUTE ; Start 07/06/16 at 13:43; Stop 07/06/16 at 13:44; Status DC Midazolam HCl (Versed) 2 mg PRN 1X PRN IV PRIOR TO PROCEDURE; Start 07/06/16 at 13:45; Stop 07/07/16 at 13:44 Fentanyl Citrate (Fentanyl 2ml Vial) 25 mcg PRN Q5MIN PRN IV X 2 DOSES FOR PAIN ; Start 07/06/16 at 13:45; Stop 07/06/16 at 13:51; Status DC Fentanyl Citrate 50 mcg 50 mcg PRN Q5MIN PRN IV X 2 DOSES FOR PAIN; Start 07/06 at 13:45; Stop 07/06/16 at 13:51; Status DC Lactated Ringer's (Iv Lactated Ringers) 1,000 ml @ 125 mls/hr Q8H IV ; Start at 13:43; Stop 07/07/16 at 01:42; Status DC Lidocaine HCl 2 ml 1X PRN PRN ID IV START; Start 07/06/16 at 13:45; Stop at 13:44 Metoclopramide HCl (Reglan) 5 mg Q6HRS IV Last administered on 07/07/16t 06:35 ; Start 07/06/16 at 18:00 Ondansetron HCl (Zofran) 4 mg PRN Q6HRS PRN IV Nausea; Start 07/07/16 at 07:00 ; Stop 07/08/16 at 06:59 Morphine Sulfate 1 mg 1 mg PRN Q10MIN PRN IV SEVERE PAIN; Start 07/07/16 at 07: 00; Stop 07/07/16 at 07:00; Status DC Lactated Ringer's (Iv Lactated Ringers) 1,000 ml @ 0 mls/hr Q0M IV ; Start at 07:00; Stop 07/07/16 at 18:59 Lidocaine HCl 2 ml 1X PRN PRN ID IV START; Start 07/07/16 at 07:00; Stop at 06:59 Hydromorphone HCl (Dilaudid) 0.5 mg PRN Q10MIN PRN IV SEVERE PAIN, Second choice; Start 07/07/16 at 07:00; Stop 07/08/16 at 06:59 Insulin Detemir (Levemir) 80 units QHS SQ ; Start 07/06/16 at 21:00; Stop at 21:00; Status DC Insulin Aspart (Novolog) 20 units TIDAC SQ ; Start 07/07/16 at 17:00 Hydromorphone HCl (Dilaudid) 2 mg PRN Q4HRS PRN PO PAIN Last administered on 03:25; Start 07/06/16 at 16:45 Magnesium Citrate (Citroma) 296 ml 1X ONCE PO Last administered on 07/06/16 17:30; Start 07/06/16 at 17:00; Stop 07/06/16 at 17:04; Status DC Polyethylene Glycol (miraLAX Powder BULK BOTTLE) 238 gm 1X ONCE PO Last administered on 07/06/16 18:38; Start 07/06/16 at 17:00; Stop 07/06/16 at 17:04 ; Status DC Bisacodyl (Dulcolax Tab) 15 mg 1X ONCE PO ; Start 07/06/16 at 17:00; Stop 07/06 at 17:04; Status DC Insulin Detemir (Levemir) 40 units QHS SQ ; Start 07/06/16 at 21:00 Pantoprazole Sodium (Protonix) 40 mg DAILYAC PO ; Start 07/07/16 at 07:30 Insulin Human Regular (Novolin R Vial) 20 unit 1X ONCE IV ; Start 07/06/16 at 22:45; Stop 07/06/16 at 22:46; Status Cancel Bisacodyl (Dulcolax Tab) 15 mg 1X ONCE PO Last administered on 07/06/16 23:04 ; Start 07/06/16 at 23:00; Stop 07/06/16 at 23:01; Status DC Insulin Aspart (Novolog) 20 units 1X ONCE SQ Last administered on 07/06/16 23 :09; Start 07/06/16 at 23:00; Stop 07/06/16 at 23:01; Status DC Magnesium Citrate (Citroma) 296 ml 1X ONCE PO ; Start 07/07/16 at 08:15; Stop 07/07/16 at 08:16; Status DC Bisacodyl (Dulcolax Tab) 40 mg 1X ONCE PO ; Start 07/07/16 at 08:15; Stop 07/07 at 08:16; Status UNV Active Scripts Active Oxycodone Hcl 10 Mg Tablet 1 Tab PO Q4-6HRS PRN Clonazepam 1 Mg Tablet 1 Tab PO TID Reported Novolog Flexpen (Insulin Aspart) 100 Unit/1 Ml Insuln.pen 20 Unit SQ TIDAC Gabapentin 600 Mg Tablet 600 Mg PO TID Lantus Solostar (Insulin Glargine,Hum.rec.anlog) 100 Unit/1 Ml Insuln.pen 80 Unit SQ QHS Adderall 30 Mg Tablet (Dextroamphetamine/Amphetamine) 30 Mg Tablet 30 Mg PO BID Metformin Hcl 1,000 Mg Tablet 1,000 Mg PO BID Vitals/I & O Vital Sign - Last 24 Hours 07/06/16 07/06/16 07/06/16 07/06/16 11:00 12:23 13:00 13:47 Temp 97.5 97.5 Pulse 101 Resp 20 B/P 116/81 Pulse Ox 96 O2 Delivery Room Air Room Air Room Air Room Air 07/06/16 07/06/16 07/06/16 07/06/16 14:26 14:34 14:47 15:00 Temp 97.6 97.6 97.6 97.3 97.6 97.6 97.6 97.3 Pulse 89 91 91 98 Resp 20 20 20 20 B/P 99/56 107/58 128/65 124/80 Pulse Ox 100 100 100 99 O2 Delivery Nasal Cannula Nasal Cannula Room Air Room Air O2 Flow Rate 2 2 07/06/16 07/06/16 07/06/16 07/06/16 15:18 17:28 19:44 20:08 Pulse 100 Resp 18 B/P 114/79 Pulse Ox 99 O2 Delivery Room Air Room Air Room Air Room Air 07/06/16 07/06/16 07/07/16 07/07/16 21:34 22:35 02:56 03:25 Temp 98.2 98.2 Pulse 116 Resp 20 18 B/P 140/69 Pulse Ox 99 99 97 99 O2 Delivery Room Air Room Air Room Air 07/07/16 07/07/16 04:25 07:00 Temp 97.7 97.7 Pulse 98 Resp 18 B/P 111/73 Pulse Ox 95 O2 Delivery Room Air Room Air Intake and Output 07/06/16 07/06/16 07/07/16 15:00 23:00 07:00 Intake Total 300 ml 650 ml Output Total 550 ml 4 ml Balance -250 ml -4 ml 650 ml NIRAJIREDSHEA NG MD Jul 07, 2016 08:22
[2016-07-07] MEDS: GABAPENTIN 300 MG CAPSULE. PO SCH ×2 (09:11→14:15)
[2016-07-07] MEDS: CLONAZEPAM 1 MG TABLET PO SCH ×2 (09:11→14:15)
[2016-07-07 10:47] VITALS: BP 115/70
[2016-07-07] MEDS ORDERED: PROPOFOL 40 ML IV ONE (12:36)
--- NOTE | 2016-07-07 13:30 | PDOC4 ---
PROCEDURE Procedure Colonoscopy/ileoscopy Indication: r/o IBD, specifically Crohn's disease Meds: per anesthesia Findings: IVANA: normal Prep poor with areas of liquid opaque stool, though large areas were fairly well -seen. The terminal ileum was well-seen and normal for several centimeters proximal to IC valve. What mucosa seen in the colon was perfectly normal. His known diverticulosis could not be appreciated due the presence of opaque stool in the sigmoid. Small internal hemorrhoids were seen. Tolerated well. IMP: Known diverticulosis; not seen. Small hemorrhoids. NO evidence for inflammatory bowel disease. REC: Advance diet as tolerated. Home from my standpoint at your discretion. RENUKA MOLINA MD Jul 07, 2016 13:30
[2016-07-07 15:01] VITALS: BP 112/70
[2016-07-07] MEDS ORDERED: INSULIN ASPART 300 UNITS/3 ML INSULN.PEN SQ SCH (17:00)
--- NOTE | 2016-07-08 10:55 | PATHOLOGY ---
PATHOLOGY REPORT * * * * * * * * FINAL DIAGNOSIS: Gastric biopsy, antrum: - Chronic gastritis, mild. COMMENT: Sections of the gastric antral biopsy show congestion and mild chronic inflammation. An immunoperoxidase stain for Helicobacter is obtained. No Helicobacter organisms are identified. There is no evidence of malignancy. (JPM:; d/t: 07/08/16) Special Stain Performed: Immunoperoxidase stain for Helicobacter (A1) REPORT ELECTRONICALLY SIGNED BY: Wade Goodwin M.D. DATE/TIME: 07/08/2016 10:54 * * * * * * * * GROSS PATHOLOGY: Received in formalin labeled "Darinel De La Torre Jr., antral biopsy," are two segments of camarena soft tissue measuring 0.6 x 0.4 x 0.1 cm in aggregate dimensions and ranging from 0.2 to 0.6 cm in maximum dimension. The specimen is submitted entirely in cassette A1. (CAA; 07/07/2016) INITIAL CPT CODE(S): A; 15702, 75877 Professional services [place] [address] Technical services performed by [facility] at [address] [place] [address]. SPECIMEN(S) RECEIVED: A.Antral biopsy CLINICAL HISTORY: Upper GI bleed PATIENT: DARINEL DE LA TORRE JR /AGE: 811/20/1980 (Age: 35) PATIENT #: [id number] ALT CASE #: SPECIMEN COLLECTION DATE: 07/06/2016 SPECIMEN RECEIVED DATE: 07/07/2016 [facility] - [address] [place] [address] - PHONE: [phone] * * * END OF REPORT * * *
== END 2016-07-07 17:42 | disposition home or self-care (01) | DRG 378 ==
LOC: ER 11:42 → 5 SOUTH 13:28
PROVIDERS: ADMIT Internal Medicine; ATTEND Internal Medicine
PROC: 0DB68ZX Excision of Stomach, Via Natural or Artificial Opening Endoscopic, Diagnostic (ICD-10-PCS; principal; 2016-07-06 14:30)
PROC: 0DJD8ZZ Inspection of Lower Intestinal Tract, Via Natural or Artificial Opening Endoscopic (ICD-10-PCS; 2016-07-07)
DX: K92.0 Hematemesis (principal); K50.90 Crohn's disease, unspecified, without complications; F11.20 Opioid dependence, uncomplicated; E11.43 Type 2 diabetes mellitus with diabetic autonomic (poly)neuropathy; E11.65 Type 2 diabetes mellitus with hyperglycemia; F31.9 Bipolar disorder, unspecified; K31.84 Gastroparesis; F90.9 Attention-deficit hyperactivity disorder, unspecified type; I10 Essential (primary) hypertension; K21.9 Gastro-esophageal reflux disease without esophagitis; K64.8 Other hemorrhoids; T39.395A Adverse effect of other nonsteroidal anti-inflammatory drugs [NSAID], initial encounter; Z79.4 Long term (current) use of insulin; Z88.8 Allergy status to other drugs, medicaments and biological substances; Z87.81 Personal history of (healed) traumatic fracture
CPT/HCPCS: 36415; 74177; 80048; 80053; 82947; 83690; 85027; 86850; 86900; 86901; 88305; 88342; 96374; 96375; C9113; J1170; J1815; J2405; J2704; J2765; J7030; J7120; 99285-25; G0641

== ENCOUNTER 2017-04-08 11:06 | Emergency (ER) | payer SELFPAY, MEDICAID ==
[2017-04-08] MEDS ORDERED: fentaNYL PF VIAL 100 MCG/2 ML VIAL IV (11:30)
[2017-04-08 11:35] LABS: POC GLUCOSE 414 mg/dL (70-99)
[2017-04-08 11:58] LABS: ADD MAN DIFF? NO
[2017-04-08 12:06] LABS: BASO % 1 % (0-3); EOS % 2 % (0-3); HEMATOCRIT 37.8 % (39.0-53.0); LYMPH # 1.5 x10^3/uL (1.0-4.8); LYMPH % 24 % (24-48); MEAN CORPUSCULAR HEMOGLOBIN 26 pg (25-35); MEAN CORPUSCULAR HGB CONC 32 g/dL (31-37); MEAN CORPUSCULAR VOLUME 82 fL (79-100); MONO % 7 % (0-9); NEUT % 66 % (31-73); PLATELET COUNT 267 x10^3/uL (140-400); RED BLOOD COUNT 4.63 x10^6/uL (4.30-5.70); RED CELL DISTRIBUTION WIDTH 17.2 % (11.5-14.5); WHITE BLOOD COUNT 6.2 x10^3/uL (4.0-11.0)
[2017-04-08 12:22] LABS: BILIRUBIN,URINE NEGATIVE (NEG); GLUCOSE,URINE >=1000 mg/dL (NEG); NITRITE,URINE NEGATIVE (NEG); PROTEIN,URINE NEGATIVE (NEG-TRACE); UROBILINOGEN,URINE 0.2 mg/dL (0.2 mg/dL)
[2017-04-08] MEDS: ONDANSETRON PF 4 MG/2 ML VIAL. IV (12:24)
[2017-04-08] MEDS: IV NORMAL SALINE 1000ML BAG 1,000 ML IV (12:24)
[2017-04-08] MEDS: MORPHINE SULFATE 4 MG/ML DISP.SYRIN. IV (12:27)
[2017-04-08 12:51] LABS: BACTERIA,URINE 0 /HPF (0-FEW); RBC,URINE 0 /HPF (0-2); SQUAMOUS EPITHELIAL CELL,UR OCC /LPF; WBC,URINE 0 /HPF (0-4)
[2017-04-08] MEDS: INSULIN REGULAR 100 UNIT/ML 10ML VIAL. IV (13:02)
[2017-04-08] MEDS: DICYCLOMINE 20 MG/2 ML AMPUL. IM (13:15)
[2017-04-08 13:22] LABS: ANION GAP 12 (6-14); BLOOD UREA NITROGEN 16 mg/dL (8-26); BUN/CREATININE RATIO 18 (6-20); CALCIUM 8.4 mg/dL (8.5-10.1); CARBON DIOXIDE 26 mmol/L (21-32); CHLORIDE 99 mmol/L (98-107); CREATININE 0.9 mg/dL (0.7-1.3); GFR 95.5; GLUCOSE 444 mg/dL (70-99); POTASSIUM 4.3 mmol/L (3.5-5.1); SODIUM 137 mmol/L (136-145)
[2017-04-08 13:30] LABS: OBC FLU VALID
[2017-04-08 13:31] LABS: ALBUMIN 3.8 g/dL (3.4-5.0); ALBUMIN/GLOBULIN RATIO 0.9 (1.0-1.7); ALK PHOS 123 U/L (46-116); ALT (SGPT) 24 U/L (16-63); AST (SGOT) 20 U/L (15-37); TOTAL BILIRUBIN 0.2 mg/dL (0.2-1.0); TOTAL PROTEIN 8.1 g/dL (6.4-8.2)
[2017-04-08 13:43] LABS: POC GLUCOSE 155 mg/dL (70-99)
== END 2017-04-08 13:56 | disposition home or self-care (01) ==
LOC: ER 11:06
DX: K52.9 Noninfective gastroenteritis and colitis, unspecified (principal); E11.9 Type 2 diabetes mellitus without complications; F31.9 Bipolar disorder, unspecified; F90.9 Attention-deficit hyperactivity disorder, unspecified type; F15.10 Other stimulant abuse, uncomplicated; Z88.4 Allergy status to anesthetic agent; Z88.8 Allergy status to other drugs, medicaments and biological substances; Z79.4 Long term (current) use of insulin
CPT/HCPCS: 36415; 80053; 81001; 82962; 83690; 85025; 87804; 87804-59; 96361; 96374; 96375; 99285-25; J1815; J2270; J2405; J7030

== ENCOUNTER 2017-05-16 17:35 | Emergency (ER) | payer SELFPAY ==
[2017-05-16] MEDS: MORPHINE SULFATE 4 MG/ML DISP.SYRIN. IV ×4 (18:45→20:00)
[2017-05-16] MEDS: DICYCLOMINE HCL 10 MG CAPSULE PO ×2 (18:45)
[2017-05-16 18:58] LABS: ADD MAN DIFF? NO
[2017-05-16 18:59] LABS: HEMATOCRIT 36.2 % (39.0-53.0); HEMOGLOBIN 12.1 g/dL (13.0-17.5); MEAN CORPUSCULAR HEMOGLOBIN 26 pg (25-35); MEAN CORPUSCULAR HGB CONC 33 g/dL (31-37); MEAN CORPUSCULAR VOLUME 79 fL (79-100); PLATELET COUNT 288 x10^3/uL (140-400); RED BLOOD COUNT 4.61 x10^6/uL (4.30-5.70); RED CELL DISTRIBUTION WIDTH 17.5 % (11.5-14.5); WHITE BLOOD COUNT 6.8 x10^3/uL (4.0-11.0)
[2017-05-16 19:00] LABS: BASO % 1 % (0-3); EOS # 0.1 x10^3/uL (0.0-0.7); EOS % 2 % (0-3); LYMPH # 1.7 x10^3/uL (1.0-4.8); LYMPH % 25 % (24-48); MONO # 0.4 x10^3/uL (0.0-1.1); MONO % 6 % (0-9); NEUT # 4.6 x10^3uL (1.8-7.7); NEUT % 67 % (31-73)
[2017-05-16] MEDS: ONDANSETRON PF 4 MG/2 ML VIAL. IV ×2 (19:25)
[2017-05-16] MEDS: IV NORMAL SALINE 1000ML BAG 1,000 ML IV ×2 (19:25)
[2017-05-16 19:52] LABS: ANION GAP 12 (6-14); BLOOD UREA NITROGEN 10 mg/dL (8-26); BUN/CREATININE RATIO 13 (6-20); CALCIUM 9.3 mg/dL (8.5-10.1); CARBON DIOXIDE 24 mmol/L (21-32); CHLORIDE 100 mmol/L (98-107); CREATININE 0.8 mg/dL (0.7-1.3); GFR 109.4; GLUCOSE 284 mg/dL (70-99); POTASSIUM 3.8 mmol/L (3.5-5.1); SODIUM 136 mmol/L (136-145)
[2017-05-16 19:56] LABS: ALBUMIN 3.6 g/dL (3.4-5.0); ALBUMIN/GLOBULIN RATIO 0.8 (1.0-1.7); ALK PHOS 126 U/L (46-116); ALT (SGPT) 17 U/L (16-63); AST (SGOT) 13 U/L (15-37); LIPASE 392 U/L (73-393); TOTAL BILIRUBIN 0.5 mg/dL (0.2-1.0); TOTAL PROTEIN 8.3 g/dL (6.4-8.2)
[2017-05-16] MEDS: LIDO:MAALOX:DONNATAL 1:1:1 15 ML SINGLE DOSE SWSW ×2 (20:00)
[2017-05-16] MEDS: FAMOTIDINE 20 MG/2 ML VIAL IVP ×2 (20:30)
[2017-05-16 20:48] LABS: POC GLUCOSE 270 mg/dL (70-99)
== END 2017-05-16 20:40 | disposition left against medical advice (07) ==
LOC: ER 17:35
DX: R10.13 Epigastric pain (principal); R10.11 Right upper quadrant pain; Z76.5 Malingerer [conscious simulation]; R11.2 Nausea with vomiting, unspecified; F31.9 Bipolar disorder, unspecified; F90.9 Attention-deficit hyperactivity disorder, unspecified type; E11.9 Type 2 diabetes mellitus without complications; F15.10 Other stimulant abuse, uncomplicated; Z88.4 Allergy status to anesthetic agent; Z88.6 Allergy status to analgesic agent; Z88.8 Allergy status to other drugs, medicaments and biological substances
CPT/HCPCS: 36415; 76705; 80053; 82962; 83690; 85025; 96361; 96374; 96375; 99285-25; J2270; J2405; J7030; S0028

== ENCOUNTER 2019-07-11 15:26 | Emergency (ER) | payer SELFPAY ==
[~2019-07-11] VITALS: Ht 182.9 cm; Wt 89.0 kg
[~2019-07-11 15:26] MED LIST changes: -CLON1TAB3 PO; +CLONAZEPAM1 MG PO; -GABA-586 PO; +GABA300C18 PO; -GABA600T2 PO; +GABA600T7 PO; +HYDR-3164 PO; -HYDR-971 PO; -HYDR2TAB13 PO; +HYDR2TAB31 PO; -METF10002 PO; +METF10007 PO; +NAPR-683 PO; -NAPR500T PO; +ONDA4TAB10 SL; -OXYC-323 PO; +OXYC1TAB15 PO
[2019-07-11] MEDS ORDERED: ONDANSETRON PF 4 MG/2 ML VIAL. IVP ONE (16:15)
[2019-07-11] MEDS ORDERED: IV NORMAL SALINE 1000ML BAG 1,000 ML IV ONE (16:15)
--- NOTE | 2019-07-11 16:33 | RAD ---
Left tibia-fibula 2 views INDICATION: Left leg pain after fall. FINDINGS: Surgical changes from a below the knee amputation are evident with sharp surgical margins and evidence of heterotopic ossification around the distal tibial diaphysis. No acute fracture. No traumatic malalignment. The soft tissues of the remaining left lower extremity are unremarkable post amputation. IMPRESSION: Unremarkable appearance to the left below the knee amputation. No fracture, malalignment or aggressive appearing osseous lesions. Electronically signed by: Nola Trejo MD (07/11/2019 4:30 PM) [id number]
[2019-07-11] MEDS: MORPHINE SULFATE 4 MG/ML VIAL. IV/SQ PRN ×2 (17:10→17:52)
[2019-07-11 17:14] LABS: BASO % 1 % (0-3); EOS % 0 % (0-3); HEMATOCRIT 30.5 % (39.0-53.0); LYMPH % 33 % (24-48); MEAN CORPUSCULAR HEMOGLOBIN 26 pg (25-35); MEAN CORPUSCULAR HGB CONC 33 g/dL (31-37); MEAN CORPUSCULAR VOLUME 80 fL (79-100); MONO # 0.4 x10^3/uL (0.0-1.1); MONO % 7 % (0-9); NEUT # 3.6 x10^3/uL (1.8-7.7); NEUT % 59 % (31-73); PLATELET COUNT 254 x10^3/uL (140-400); RED BLOOD COUNT 3.79 x10^6/uL (4.30-5.70); RED CELL DISTRIBUTION WIDTH 17.4 % (11.5-14.5); WHITE BLOOD COUNT 6.1 x10^3/uL (4.0-11.0)
[2019-07-11 17:25] LABS: CALCIUM 9.2 mg/dL (8.5-10.1); CREATININE 0.7 mg/dL (0.7-1.3); GFR 126.2; POTASSIUM 3.9 mmol/L (3.5-5.1)
[2019-07-11 17:33] LABS: ALBUMIN 3.2 g/dL (3.4-5.0); ALBUMIN/GLOBULIN RATIO 0.6 (1.0-1.7); TOTAL BILIRUBIN 0.2 mg/dL (0.2-1.0); TOTAL PROTEIN 8.4 g/dL (6.4-8.2)
--- NOTE | 2019-07-11 18:31 | PHYS DOC ---
Past Medical History Past Medical History: Anxiety, Bipolar, Depression, Diabetes-Type II, Diverticulosis, Pancreatitis Additional Past Medical Histor: CHRON'S DISEASE,ADHD,OSTEOMYELITIS (DIOGENES LOBATO APRN) Past Surgical History: Other Additional Past Surgical Histo: Colonoscopy,EGD;abdominal abscess with surgical drain,L BKA (DIOGENES LOBATO APRN) Smoking Status: Never Smoker Additional Information: CHEWS TOBBACO Alcohol Use: Occasionally Drug Use: None, Methamphetamine (DIOGENES LOBATO APRN) Attending Signature I have participated in the care of this patient and I have reviewed and agree with all pertinent clinical information above including history, exam, and recommendations. (VARSHA CARROLL MD) Adult General Chief Complaint Chief Complaint: GI PROBLEM HPI HPI Patient is a 38 year old male with history of diabetes type 2, bipolar, anxiety, diverticulosis, pancreatitis, who presents to the ED today complaining of 10 out of 10 generalized abdominal pain with nausea vomiting and diarrhea for 2 days. Patient is also complaining of pain on the left stump, he reports he had his left foot amputated a month ago in [place]. He is requesting somethin g for pain for this. Denies any fever. 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 Denies any fever. Denies any alcohol use. (DIOGENES LOBATO APRN) Review of Systems Review of Systems Constitutional: Denies fever or chills [] Eyes: Denies change in visual acuity, redness, or eye pain [] HENT: Denies nasal congestion or sore throat [] Respiratory: Denies cough or shortness of breath [] Cardiovascular: No additional information not addressed in HPI [] GI: Reports abdominal pain, nausea vomiting and diarrhea, denies any hematemesis or melena : Denies dysuria or hematuria [] Musculoskeletal: Reports left stump pain, denies back pain Integument: Denies rash or skin lesions [] Neurologic: Denies headache, focal weakness or sensory changes [] All other systems were reviewed and found to be within normal limits, except as documented in this note. (DIOGENES LOBATO APRN) Current Medications Current Medications Current Medications Medications (Trade) Dose Ordered Sig/Trev Start Time Stop Time Status Last Admin Dose Admin Morphine Sulfate (Morphine Sulfate) 4 mg PRN Q15MIN PRN 07/11/19 16:15 07/11/19 19:10 DC 07/11/19 17:52 4 MG Ondansetron HCl (Zofran) 4 mg 1X ONCE 07/11/19 16:15 07/11/19 16:16 DC 07/11/19 17:09 4 MG Sodium Chloride 1,000 ml @ 1,000 mls/hr 1X ONCE 07/11/19 16:15 07/11/19 17:14 DC 07/11/19 17:09 1,000 MLS/HR (VARSHA CARROLL MD) Allergies Allergies Allergies Coded Allergies Type Severity Reaction Last Updated Verified fentanyl Allergy Severe Throat Swells--Anaphylaxis 07/07/16 Yes haloperidol Allergy Severe "In ICU, almost .Toxicity." 07/07/16 Yes lithium Allergy Severe "In ICU-almost . Toxicity" 07/07/16 Yes ketorolac Allergy Intermediate Hives 07/07/16 Yes dicyclomine Allergy Unknown 05/16/17 Yes divalproex sodium Allergy Unknown 05/16/17 Yes (VARSHA CARROLL MD) Physical Exam Physical Exam Constitutional: Well developed, well nourished, no acute distress, non-toxic appearance. [] HENT: Normocephalic, atraumatic, bilateral external ears normal, oropharynx moist, no oral exudates, nose normal. [] Eyes: PERRLA, EOMI, conjunctiva normal, no discharge. [] Neck: Normal range of motion, no tenderness, supple, no stridor. [] Cardiovascular:Heart rate regular rhythm, no murmur [] Lungs & Thorax: Bilateral breath sounds clear to auscultation [] Abdomen: Bowel sounds normal, soft, slight tenderness on palpation of the left side of the abdomen, no tenderness in the right lower quadrant, no masses, no pulsatile masses. [] Skin: Warm, dry, no erythema, no rash. [] Back: No tenderness, no CVA tenderness. [] Extremities: Left lower extremity with a new below the knee amputation, sutures are still present on the stump site. The stump site is well approximated. There is trace serosanguineous drainage from the stump. Full range of motion to the left lower extremity. Neurologic: Alert and oriented X 3, normal motor function, normal sensory function, no focal deficits noted. [] Psychologic: Affect normal, judgement normal, mood normal. [] (LIZETTESALVADORDIOGENES Enriquez APRN) Current Patient Data Vital Signs Vital Signs Date Time Temp Pulse Resp B/P (MAP) Pulse Ox O2 Delivery O2 Flow Rate FiO2 07/11/19 18:37 104 16 137/67 (90) 98 Room Air 07/11/19 15:38 98.5 98.5 (VARSHA CARROLL MD) Lab Values Laboratory Tests Test 07/11/19 16:55 White Blood Count 6.1 x10^3/uL (4.0-11.0) Red Blood Count 3.79 x10^6/uL (4.30-5.70) L Hemoglobin 10.0 g/dL (13.0-17.5) L Hematocrit 30.5 % (39.0-53.0) L Mean Corpuscular Volume 80 fL (79-100) Mean Corpuscular Hemoglobin 26 pg (25-35) Mean Corpuscular Hemoglobin Concent 33 g/dL (31-37) Red Cell Distribution Width 17.4 % (11.5-14.5) H Platelet Count 254 x10^3/uL (140-400) Neutrophils (%) (Auto) 59 % (31-73) Lymphocytes (%) (Auto) 33 % (24-48) Monocytes (%) (Auto) 7 % (0-9) Eosinophils (%) (Auto) 0 % (0-3) Basophils (%) (Auto) 1 % (0-3) Neutrophils # (Auto) 3.6 x10^3/uL (1.8-7.7) Lymphocytes # (Auto) 2.0 x10^3/uL (1.0-4.8) Monocytes # (Auto) 0.4 x10^3/uL (0.0-1.1) Eosinophils # (Auto) 0.0 x10^3/uL (0.0-0.7) Basophils # (Auto) 0.0 x10^3/uL (0.0-0.2) Sodium Level 135 mmol/L (136-145) L Potassium Level 3.9 mmol/L (3.5-5.1) Chloride Level 100 mmol/L (98-107) Carbon Dioxide Level 27 mmol/L (21-32) Anion Gap 8 (6-14) Blood Urea Nitrogen 13 mg/dL (8-26) Creatinine 0.7 mg/dL (0.7-1.3) Estimated GFR (Cockcroft-Gault) 126.2 BUN/Creatinine Ratio 19 (6-20) Glucose Level 200 mg/dL (70-99) H Calcium Level 9.2 mg/dL (8.5-10.1) Total Bilirubin 0.2 mg/dL (0.2-1.0) Aspartate Amino Transferase (AST) 13 U/L (15-37) L Alanine Aminotransferase (ALT) 17 U/L (16-63) Alkaline Phosphatase 118 U/L (46-116) H Total Protein 8.4 g/dL (6.4-8.2) H Albumin 3.2 g/dL (3.4-5.0) L Albumin/Globulin Ratio 0.6 (1.0-1.7) L Lipase 158 U/L (73-393) Procalcitonin < 0.10 ng/mL (0.00-0.10) Ethyl Alcohol Level < 10 mg/dL (0-10) Laboratory Tests 07/11/19 16:55 Laboratory Tests 07/11/19 16:55 (VARSHA CARROLL MD) EKG EKG [] (DIOGENES LOBATO APRN) Radiology/Procedures Radiology/Procedures []PROCEDURE: TIBIA FIBULA LEFT Left tibia-fibula 2 views INDICATION: Left leg pain after fall. FINDINGS: Surgical changes from a below the knee amputation are evident with sharp surgical margins and evidence of heterotopic ossification around the distal tibial diaphysis. No acute fracture. No traumatic malalignment. The soft tissues of the remaining left lower extremity are unremarkable post amputation. IMPRESSION: Unremarkable appearance to the left below the knee amputation. No fracture, malalignment or aggressive appearing osseous lesions. Electronically signed by: Juliet Trejo MD (07/11/2019 4:30 PM) [id number] DICTATED and SIGNED BY: JULIET TREJO MD DATE: 07/11/19 1630 (DIOGENES LOBATO APRN) Course & Med Decision Making Course & Med Decision Making Pertinent Labs and Imaging studies reviewed. (See chart for details) This is a 38-year-old male patient well-known to this ED presenting today complaining of generalized abdominal pain with nausea vomiting and diarrhea that began yesterday. Patient also reports having left below the knee amputation done approximately a month ago in [place]. He is requesting pain medicine for this. Recommended he contacts his doctor in [place] and they can figure out how he can get pain medicine otherwise we will give him prescription for gabapentin. Patient's labs are negative for any acute findings, we did not do any CAT scan of the abdomen and pelvis on this patient because he has had multiple CTs in the last 1 year. Patient refused to give us any urine. Discharge to home. Provided GI for follow-up. (DIOGENES LOBATO APRN) Dragon Disclaimer Dragon Disclaimer This electronic medical record was generated, in whole or in part, using a voice recognition dictation system. (DIOGENES LOBATO APRN) Departure Departure Impression: Primary Impression: Abdominal pain Additional Impressions: Hyperglycemia Neuropathic pain Nausea and vomiting Diarrhea Disposition: HOME, SELF-CARE Condition: STABLE Referrals: NO PCP (PCP) AARON SON MD follow up in 1-2 weeks Patient Instructions: Abdominal Pain Additional Instructions: You were evaluated in the emergency room for abdominal pain, nausea vomiting and diarrhea as well as pain on your left lower extremity. We highly recommend you follow-up with your own doctor as soon as you can. Take the prescribed medications as ordered. Come back to the ED at any point symptoms worsen. Scripts Ondansetron (ONDANSETRON ODT) 4 Mg Tab.rapdis 1 TAB PO PRN Q6-8HRS, #16 TAB Prov: LIZETTESINADIOGENES APRN 07/11/19 Gabapentin (GABAPENTIN ) 300 Mg Capsule 300 MG PO TID for NEUROGENIC PAIN, #30 CAP Prov: DIOGENES LOBATO APRN 07/11/19 Problem Qualifiers Primary Impression: Abdominal pain Abdominal location: generalized Qualified Codes: R10.84 - Generalized abdominal pain Additional Impressions: Nausea and vomiting Vomiting type: unspecified Vomiting Intractability: non-intractable Qualified Codes: R11.2 - Nausea with vomiting, unspecified Diarrhea Diarrhea type: unspecified type Qualified Codes: R19.7 - Diarrhea, unspeci fied LUIS ALFREDODIOGENES APRN Jul 11, 2019 18:31 VARSHA CARROLL MD Jul 11, 2019 19:48
[2019-07-11 18:37] VITALS: BP 137/67
[2019-07-11] MEDS ORDERED: ONDA4TAB12 PO (18:45)
[2019-07-11] MEDS ORDERED: GABA300C18 PO (18:45)
== END 2019-07-11 19:00 | disposition home or self-care (01) ==
LOC: ER 15:26
DX: R10.84 Generalized abdominal pain (principal); R11.2 Nausea with vomiting, unspecified; R19.7 Diarrhea, unspecified; M79.671 Pain in right foot; E11.65 Type 2 diabetes mellitus with hyperglycemia; E11.40 Type 2 diabetes mellitus with diabetic neuropathy, unspecified; F41.9 Anxiety disorder, unspecified; F32.9 Major depressive disorder, single episode, unspecified; Z90.89 Acquired absence of other organs; Z98.890 Other specified postprocedural states; Z88.6 Allergy status to analgesic agent; Z88.2 Allergy status to sulfonamides; Z88.5 Allergy status to narcotic agent
CPT/HCPCS: 36415; 73590; 80053; 83690; 84145; 85025; 96361; 96374; 96375; 96376; 99285; G0480; J2270; J2405; J7030